=== PATIENT | female | born 1965 | race Caucasian/White ===

== ENCOUNTER → 2020-07-31 | Outpatient (CLI) | payer MEDICARE, OTHER ==
[2015-03-30 14:30] VITALS: BP 132/72
[~2020-07-31] MED LIST: CYCL10TA2 PO; DOCU-109 PO; DOXE100C PO; DOXE10CA PO; DULO60CA6 PO; HYDR10SY16 PO; HYDR50TA PO; LEVO500T59 PO; METH4TAB2 PO; Oxycodone Hcl/Acetaminophen PO; ZIPR60CA2 PO; ZIPR80CA3 PO
--- NOTE | 2020-08-09 08:50 | KCIC ---
Bilateral digital screening mammograms with 3-D tomosynthesis: Reason for examination: Routine screening. Comparison is made to previous studies dated back to 03/06/2017. Bilateral mammograms in CC and oblique projections were obtained with 2-D imaging and 3-D tomosynthes is imaging on a Siemens Inspiration unit and reviewed on the workstation. Interpretation was made stephan hernandez the benefit of CAD. The skin and nipples show no abnormalities. No abnormal axillary lymph nodes are seen. The breast par enchyma is extremely dense. (Breast density: Category D.) There continues to be a small circumscribed nodule at 3:00 position of the right breast which is stable. There are no new dominant masses, suspi cious calcifications or architectural distortion. Scattered punctate calcifications are seen. Impression: No evidence of malignancy. Recommend routine screening. Your patient's mammogram demonstrates that she has dense breast tissue (breast density category C or D), which could hide abnormalities, and if she has other risk factors for breast cancer that have bee n identified, she might benefit from supplemental screening tests that may be suggested by you as her ordering physician. Dense breast tissue, in and of itself, is a relatively common condition. Therefo re, this information is not provided to cause undue concern, but rather to raise your awareness and t o promote discussion with your patient regarding the presence of other risk factors, in addition to d ense breast tissue. Your patient's mammography results will be sent to her. BI-RAD Category 2: Benign. "Our facility is accredited by the [employer] Mammography Program." This patient's information has been entered into a reminder system for the patient to be notified wit h the results of her examination and a target date for the next mammogram. Electronically signed by: Becki Guardado MD (08/09/2020 8:47 AM) [id number]
== END ==
LOC: KCIC MAMMO 08:20
PROVIDERS: ATTEND Family Medicine
DX: Z12.31 Encounter for screening mammogram for malignant neoplasm of breast (principal); N64.89 Other specified disorders of breast
CPT/HCPCS: 77063; 77067

== ENCOUNTER → 2020-08-03 | Outpatient (CLI) | payer MEDICARE, OTHER ==
[2015-03-30 14:30] VITALS: BP 132/72
--- NOTE | 2020-08-03 14:39 | KCIC ---
EXAM: XR HAND_RIGHT 3 VIEWS, XR RT WRIST 3VIEWS 08/03/2020 12:00 AM CLINICAL INDICATION: Right wrist and hand pain post fall 4 days ago COMPARISON: None TECHNIQUE: 3 views of the right wrist and 3 views of the right hand FINDINGS: Right wrist: A splint is in place. There is no acute fracture. Alignment is normal. Joint spaces are maintained. Mild soft tissue swelling. Right hand: A splint is in place. No acute fracture. Alignment is normal. Joint spaces are maintained . No focal soft tissue abnormality. IMPRESSION: No acute osseous abnormality. Mild soft tissue swelling of the wrist. Electronically signed by: Usha Sarmiento MD (08/03/2020 2:36 PM) [id number]
== END ==
LOC: KCIC 14:05
PROVIDERS: ATTEND Family Medicine
DX: M79.641 Pain in right hand (principal); M25.531 Pain in right wrist; M79.89 Other specified soft tissue disorders
CPT/HCPCS: 73110; 73130

== ENCOUNTER 2021-01-26 11:34 | Inpatient (IN) | payer MEDICARE, OTHER ==
[~2021-01-26] VITALS: Ht 162.6 cm; Wt 61.5 kg
[2021-01-26 12:29] LABS: BASO # 0.1 x10^3/uL (0.0-0.2); BASO % 1 % (0-3); EOS % 0 % (0-3); HEMATOCRIT 41.3 % (36.0-47.0); HEMOGLOBIN 13.9 g/dL (12.0-15.5); LYMPH # 0.6 x10^3/uL (1.0-4.8); LYMPH % 3 % (24-48); MEAN CORPUSCULAR HEMOGLOBIN 30 pg (25-35); MEAN CORPUSCULAR HGB CONC 34 g/dL (31-37); MEAN CORPUSCULAR VOLUME 89 fL (79-100); MONO # 0.9 x10^3/uL (0.0-1.1); MONO % 5 % (0-9); NEUT # 16.7 x10^3/uL (1.8-7.7); NEUT % 91 % (31-73); PLATELET COUNT 162 x10^3/uL (140-400); RED BLOOD COUNT 4.67 x10^6/uL (3.50-5.40); RED CELL DISTRIBUTION WIDTH 14.7 % (11.5-14.5); WHITE BLOOD COUNT 18.3 x10^3/uL (4.0-11.0)
[2021-01-26 12:39] LABS: CREATININE 1.5 mg/dL (0.6-1.0); GFR 35.9; POTASSIUM 3.9 mmol/L (3.5-5.1)
--- NOTE | 2021-01-26 12:44 | RAD ---
AP chest x-ray HISTORY: Shortness of breath. FINDINGS: ACDF hardware cervical spine. Heart size normal. Mediastinal silhouette is grossly normal g iven leftward rotation of the patient on image which somewhat limits assessment. No pneumothorax. No pleural effusions. Left lung is clear. Pulmonary interstitial and alveolar infiltrates at the right l deborah base. Old posterior ninth left rib deformity.. IMPRESSION: Right perihilar upper lobe, and right middle and lower lobe pulmonary interstitial and al veolar infiltrates may represent asymmetric pulmonary edema versus pneumonia including atypical infec tions such as viral pneumonia. Electronically signed by: Arturo Escobar MD (01/26/2021 12:42 PM) [id number]
--- NOTE | 2021-01-26 12:44 | ED.ADGEN ---
Past Medical History Past Medical History: Bipolar Past Surgical History: Appendectomy, Cholecystectomy, Hysterectomy, Other Additional Past Surgical Histo: KIDNEY, NECK Smoking Status: Current Every Day Smoker Alcohol Use: None Drug Use: None Social History Narrative: "takes a lot of pills for psych issues" per sig. other General Adult EDM: Chief Complaint: ABDOMINAL PAIN HPI: HPI: Patient is a 55-year-old female past medical history of depression and anxiety who presents to the emergency room complaining of possible abdominal pain and vomiting. Patient is a very poor historian. She states she had belly pain yesterday and maybe has a cough. Her significant other states that she has been having belly pain and diarrhea. Patient is lethargic on exam. Significant other states he believes she took her normal value before work today. Patient states that she currently does not have any belly pain. She has not had a Covid vaccines. Review of Systems: Review of Systems: Complete ROS is negative unless otherwise documented in HPI Current Medications: Current Medications Medications (Trade) Dose Ordered Sig/Jesus Manuel Start Time Stop Time Status Last Admin Dose Admin Acetaminophen (Tylenol) 650 mg 1X ONCE 01/26/21 15:45 01/26/21 15:46 DC 01/26/21 16:13 650 MG Ceftriaxone Sodium (Rocephin) 1 gm 1X ONCE 01/26/21 15:45 01/26/21 15:46 DC 01/26/21 16:12 1 GM Info (CONTRAST GIVEN -- Rx MONITORING) 1 each PRN DAILY PRN 01/26/21 13:00 01/28/21 12:59 Iohexol (Omnipaque 240 Mg/ml) 30 ml 1X ONCE 01/26/21 13:00 01/26/21 13:01 DC 01/26/21 13:45 30 ML Sodium Chloride 1,000 ml @ 1,000 mls/hr 1X ONCE 01/26/21 15:45 01/26/21 16:44 DC 01/26/21 16:11 1,000 MLS/HR Allergies: Allergies: Allergies Coded Allergies Type Severity Reaction Last Updated Verified Sulfa (Sulfonamide Antibiotics) Allergy Intermediate 03/29/15 Yes penicillin Allergy Intermediate 03/29/15 Yes Physical Exam: PE: General: Awake, lethargic, mild diaphoresis HEENT: Atraumatic, EOMI, PERRL, airway patent, moist oral mucosa Neck: Supple, trachea midline Respiratory: CTA bilaterally, normal effort, no wheezing/crackles CV: Tachycardic, no murmur, cap refill <2 GI: Soft, nondistended, nontender, no masses MSK: No obvious deformities Skin: Warm, dry, intact Neuro: A&O x2, speech NL, sensory and motor grossly intact, no focal deficits Psych: Normal affect, normal mood, not suicidal or homicidal Current Patient Data: Labs: Laboratory Tests Test 01/26/21 11:54 01/26/21 14:35 01/26/21 14:40 White Blood Count 18.3 x10^3/uL (4.0-11.0) H Red Blood Count 4.67 x10^6/uL (3.50-5.40) Hemoglobin 13.9 g/dL (12.0-15.5) Hematocrit 41.3 % (36.0-47.0) Mean Corpuscular Volume 89 fL (79-100) Mean Corpuscular Hemoglobin 30 pg (25-35) Mean Corpuscular Hemoglobin Concent 34 g/dL (31-37) Red Cell Distribution Width 14.7 % (11.5-14.5) H Platelet Count 162 x10^3/uL (140-400) Neutrophils (%) (Auto) 91 % (31-73) H Lymphocytes (%) (Auto) 3 % (24-48) L Monocytes (%) (Auto) 5 % (0-9) Eosinophils (%) (Auto) 0 % (0-3) Basophils (%) (Auto) 1 % (0-3) Neutrophils # (Auto) 16.7 x10^3/uL (1.8-7.7) H Lymphocytes # (Auto) 0.6 x10^3/uL (1.0-4.8) L Monocytes # (Auto) 0.9 x10^3/uL (0.0-1.1) Eosinophils # (Auto) 0.0 x10^3/uL (0.0-0.7) Basophils # (Auto) 0.1 x10^3/uL (0.0-0.2) Segmented Neutrophils % 88 % (35-66) H Band Neutrophils % 2 % (0-9) Lymphocytes % 5 % (24-48) L Monocytes % 5 % (0-10) Platelet Estimate Adequate (ADEQUATE) Sodium Level 139 mmol/L (136-145) Potassium Level 3.9 mmol/L (3.5-5.1) Chloride Level 101 mmol/L (98-107) Carbon Dioxide Level 28 mmol/L (21-32) Anion Gap 10 (6-14) Blood Urea Nitrogen 12 mg/dL (7-20) Creatinine 1.5 mg/dL (0.6-1.0) H Estimated GFR (Cockcroft-Gault) 35.9 BUN/Creatinine Ratio 8 (6-20) Glucose Level 96 mg/dL (70-99) Calcium Level 9.0 mg/dL (8.5-10.1) Total Bilirubin 1.0 mg/dL (0.2-1.0) Aspartate Amino Transferase (AST) 56 U/L (15-37) H Alanine Aminotransferase (ALT) 37 U/L (14-59) Alkaline Phosphatase 107 U/L (46-116) Troponin I Quantitative < 0.017 ng/mL (0.000-0.055) FA-Wut-Z-Type Natriuretic Peptide 688 pg/mL (0-124) H Total Protein 8.1 g/dL (6.4-8.2) Albumin 3.8 g/dL (3.4-5.0) Albumin/Globulin Ratio 0.9 (1.0-1.7) L Lipase 16 U/L (73-393) L D-Dimer (Jayde) 1.44 ug/mlFEU (0.00-0.50) H Urine Collection Type Unknown Urine Color Yellow Urine Clarity Cloudy Urine pH 6.0 (<5.0-8.0) Urine Specific [place] 1.020 (1.000-1.030) Urine Protein Negative mg/dL (NEG-TRACE) Urine Glucose (UA) Negative mg/dL (NEG) Urine Ketones (Stick) 40 mg/dL (NEG) Urine Blood Moderate (NEG) Urine Nitrite Positive (NEG) Urine Bilirubin Negative (NEG) Urine Urobilinogen Dipstick 1.0 mg/dL (0.2 mg/dL) Urine Leukocyte Esterase Moderate (NEG) Urine RBC Occ /HPF (0-2) Urine WBC 20-40 /HPF (0-4) Urine Squamous Epithelial Cells Few /LPF Urine Bacteria Many /HPF (0-FEW) Urine Mucus Mod /LPF SARS-CoV-2 Antigen (Rapid) Negative (NEGATIVE) Laboratory Tests 01/26/21 11:54 Laboratory Tests 01/26/21 11:54 Vital Signs: Vital Signs Date Time Temp Pulse Resp B/P (MAP) Pulse Ox O2 Delivery O2 Flow Rate FiO2 01/26/21 15:42 119 17 110/54 (72) 95 Nasal Cannula 2.0 01/26/21 11:35 101.9 101.9 EKG: EKG: [] Heart Score: C/O Chest Pain: N/A Risk Factors: Risk Factors: DM, Current or recent (<one month) smoker, HTN, HLP, family history of CAD, obesity. Risk Scores: Score 0 - 3: 2.5% MACE over next 6 weeks - Discharge Home Score 4 - 6: 20.3% MACE over next 6 weeks - Admit for Clinical Observation Score 7 - 10: 72.7% MACE over next 6 weeks - Early Invasive Strategies Radiology/Procedures: Radiology/Procedures: [] Course & Med Decision Making: Course & Med Decision Making Pertinent Labs and Imaging studies reviewed. (See chart for details) Patient is a 55-year-old female who presents to the emergency room complaining of possible abdominal pain. Given patient's symptoms we will do an abdominal evaluation. Patient is a very poor historian at this time it is unclear exactly the cause of patient's presentation. Family member feels that she needs to be kept overnight but is unclear as to why they feel that way. Patient would like to go home as soon as possible. Patient became increasingly confused and hypoxic. She was placed on oxygen. Chest x-ray shows pneumonia which could be related to Covid. CT abdomen pelvis is negative. Patient does have a UTI. She was given antibiotics here in the emergency room. As patient received contrast for her CT abdomen she will need a VQ scan for elevated D-dimer. Patient will be admitted for further care and evaluation. Dragon Disclaimer: Sandro Disclaimer: This electronic medical record was generated, in whole or in part, using a voice recognition dictation system. Departure Departure Impression: Primary Impression: Person under investigation for COVID-19 Additional Impressions: Hypoxia Delirium Pyelonephritis Condition: GUARDED Referrals: BENITO GARCIA MD (PCP) Problem Qualifiers LENI HUERTA MD Jan 26, 2021 12:44
[2021-01-26 12:45] LABS: ALBUMIN 3.8 g/dL (3.4-5.0); ALBUMIN/GLOBULIN RATIO 0.9 (1.0-1.7); TOTAL PROTEIN 8.1 g/dL (6.4-8.2)
[2021-01-26] MEDS ORDERED: IOHEXOL 240 MG/ML 50ML VIAL. PO ONE (13:00)
[2021-01-26] MEDS ORDERED: CONTRAST GIVEN. MC PRN (13:00)
[2021-01-26 13:22] LABS: % BANDS 2 % (0-9); % LYMPHS 5 % (24-48); % MONOS 5 % (0-10); % SEGS 88 % (35-66); PLT ESTIMATE ADEQUATE (ADEQUATE)
--- NOTE | 2021-01-26 14:06 | RAD ---
CT abdomen and pelvis with oral contrast only. PQRS statement: CT scans at this facility use dose reduction including either automated exposure cont rol, iterative reconstructions, and /or weight based radiation dosing via mA and kV modification when appropriate to reduce radiation dose to as low as reasonably achievable. HISTORY: Abdominal pain, vomiting, confusion. Abdomen findings: Mild discoid atelectasis at the lingula and right middle lobe. Mild reflux of contr ast at the lower esophagus. Lumbar disc disease. Mild fatty atrophy of the pancreas. The left kidney is mildly atrophic. There is mild bilateral renal pelviectasis. No urinary calculi evident. Adrenals, spleen, liver and gallbladder are unremarkable. No obstruction or inflammation GI tract. Appendix is not visualized could be surgically absent or obscured by surrounding bowel loops. Aorta and iliac ar dione calcified plaque. No abdominal fluid. Pelvis findings: Uterus, ovaries, bladder, rectum and bones are unremarkable. No pelvic fluid. Osteit is pubis with bony sclerosis and bone spurring. IMPRESSION: 1. No acute process. No obstruction or inflammation of the GI tract. 2. Other findings as described above. Electronically signed by: Arturo Escobar MD (01/26/2021 2:04 PM) [id number]
[2021-01-26 14:53] LABS: BILIRUBIN,URINE NEGATIVE (NEG); CLARITY,URINE CLOUDY; COLOR,URINE YELLOW; NITRITE,URINE POSITIVE (NEG); PROTEIN,URINE NEGATIVE (NEG-TRACE)
[2021-01-26 15:02] LABS: BACTERIA,URINE MANY /HPF (0-FEW); RBC,URINE OCC /HPF (0-2); WBC,URINE 20-40 /HPF (0-4)
[2021-01-26] MEDS ORDERED: cefTRIAXone IV Push 1 GM VIAL. IVP ONE (15:45)
[2021-01-26] MEDS ORDERED: ACETAMINOPHEN 325 MG TABLET. PO ONE (15:45)
[2021-01-26] MEDS ORDERED: IV NORMAL SALINE 1000ML BAG 1,000 ML IV ONE ×2 (15:45→18:45)
[2021-01-26 17:30] VITALS: BP 122/72
--- NOTE | 2021-01-26 17:30 | NUR ---
PT ARRIVED TO ROOM 246 VIA GURNEY FROM ED. PT WAS TRANSFERRED TO BED. PT NOT FOLLOWING COMMANDS, INCONTINENT OF FECES, AND LT SIDE FACIAL DROOP. CODE STROKE CALLED.
--- NOTE | 2021-01-26 18:07 | RAD ---
Exam: CT head INDICATION: Stroke TECHNIQUE: Sequential axial images through the head were obtained without the administration of IV co ntrast. Exposure: One or more of the following in the visualized dose reduction techniques were utilized for this examination: 1. Automated exposure control 2. Adjustment of the MA and/or KV according to patient size 3. Use of iterative of reconstructive technique Comparisons: None FINDINGS: No focal parenchymal lesion or hemorrhage is identified. There is no midline shift or sulcal effaceme nt. No acute vascular territory infarction is identified. Humphries-white distinction is preserved. The ventricular system is within normal limits without compression hydrocephalus. The basal cisterns are well maintained. The visualized portions of the paranasal sinuses and mastoid air cells are well-pneumatized. No acute fractures. IMPRESSION: No acute intracranial abnormality. FOR INTERNAL CODING PURPOSES Critical result: Findings discussed with ER at 01/26/2021 6:04 PM. RESULT CODE: (C) Electronically signed by: Mary Grace Zapata MD (01/26/2021 6:05 PM) MARIA TERESA
--- NOTE | 2021-01-26 18:15 | NUR ---
PER DR GALVEZ - TOAN CODE STROKE. HE BELIEVES PT'S SX ARE DUE TO SEPSIS. Addendum: 01/26/21 at 1958 by BEN GOMES RN RN DR GALVEZ ALSO NOTIFIED REGARDING PT'S AXILLARY TEMP OF 103.2.
[2021-01-26] MEDS: IV NORMAL SALINE 1000ML BAG 1,000 ML IV SCH (18:45)
[2021-01-26] MEDS ORDERED: hydrOXYzine 25 MG TABLET PO PRN (18:45)
--- NOTE | 2021-01-26 18:51 | RAD ---
Ventilation perfusion exam History:Reason: sob, elevated ddimer Comparison: Chest x-ray same day Findings: Perfusion images only. Perfusion images were acquired after the patient was injected with 5 .5 mCi of technetium 99m MAA. TECHNIQUE: There is severe heterogeneity of radiotracer on perfusion images. Large segmental perfusion defect is identified, in the right upper lobe and right middle lobe.. Impression: High probability for pulmonary embolic disease. Electronically signed by: Mary Grace Zapata MD (01/26/2021 6:48 PM) [facility]
[2021-01-26 19:00] VITALS: BP 104/53
[2021-01-26] MEDS ORDERED: AZITHROMYCIN 500 MG in IV NORMAL SALINE 250ML 250 ML IV ONE (19:00)
--- NOTE | 2021-01-26 20:17 | PDOC1 ---
History and Physical Date of Admission Date of Admission DATE: 01/26/21 TIME: 20:11 Source Source: Chart review, Patient History of Present Illness History of Present Illness Ms Hannon is a 55-year-old female admit for hypoxia and high fever, UTI noted, abx given, CT chest showed poss unilateraly viral pneumonia, not clearly COVid on xray. she has been confused today and was slurred speech on the CV unit. she had abd pain earlier, this is improve,d - recent diarrnea. pain 4/10 now, 7/10 earlier She has not had a Covid vaccines. Past Medical History Cardiovascular: No pertinent hx Pulmonary: Other Psych: Anxiety, Depression Musculoskeletal: low back pain Family History Family History: Alcohol Abuse Social History Smoke: No ALCOHOL: rare Drugs: None Current Problem List Problem List Problems Medical Problems: (1) Delirium Status: Acute (2) Hypoxia Status: Acute (3) Person under investigation for COVID-19 Status: Acute (4) Pyelonephritis Status: Acute Current Medications Current Medications Current Medications Iohexol (Omnipaque 240 Mg/ml) 30 ml 1X ONCE PO Last administered on 01/26/21at 13:45; Start 01/26/21 at 13:00; Stop 01/26/21 at 13:01; Status DC Info (CONTRAST GIVEN -- Rx MONITORING) 1 each PRN DAILY PRN MC SEE COMMENTS; Start 01/26/21 at 13:00; Stop 01/28/21 at 12:59 Sodium Chloride 1,000 ml @ 1,000 mls/hr 1X ONCE IV Last administered on 01/26/21at 16:11; Start 01/26/21 at 15:45; Stop 01/26/21 at 16:44; Status DC Ceftriaxone Sodium (Rocephin) 1 gm 1X ONCE IVP Last administered on 01/26/21at 16:12; Start 01/26/21 at 15:45; Stop 01/26/21 at 15:46; Status DC Acetaminophen (Tylenol) 650 mg 1X ONCE PO Last administered on 01/26/21at 16:13; Start 01/26/21 at 15:45; Stop 01/26/21 at 15:46; Status DC Sodium Chloride 1,000 ml @ 125 mls/hr Q8H IV ; Start 01/26/21 at 17:00; Stop 01/27/21 at 16:59 Acetaminophen (Tylenol) 650 mg PRN Q6HRS PRN PO MILD PAIN / TEMP > 100.3'F; Start 01/26/21 at 18:45 Azithromycin 500 mg/Sodium Chloride 250 ml @ 250 mls/hr 1X ONCE IV ; Start 01/26/21 at 19:00; Stop 01/26/21 at 19:59; Status DC Ceftriaxone Sodium (Rocephin) 1 gm Q24H IVP ; Start 01/27/21 at 16:00 Guaifenesin (Robitussin Dm) 10 ml PRN Q6HRS PRN PO COUGH; Start 01/26/21 at 18:45 Sodium Chloride 1,000 ml @ 1,000 mls/hr 1X ONCE IV ; Start 01/26/21 at 18:45; Stop 01/26/21 at 19:44; Status DC Doxepin HCl (SINEquan) 100 mg QHS PO ; Start 01/26/21 at 21:00 Duloxetine HCl (Cymbalta) 90 mg DAILY PO ; Start 01/27/21 at 09:00 Hydroxyzine HCl (Atarax) 50 mg PRN QID PRN PO ANXIETY; Start 01/26/21 at 18:45 Ziprasidone (Geodon) 60 mg BID PO ; Start 01/26/21 at 21:00 Ziprasidone (Geodon) 40 mg BID PO ; Start 01/26/21 at 21:00 Active Scripts Active Reported Hydroxyzine Hcl 50 Mg Tablet 50 Mg PO PRN QID PRN Ziprasidone Hcl 80 Mg Capsule 100 Mg PO BID Doxepin Hcl 100 Mg Capsule 100 Mg PO QHS Cymbalta (Duloxetine Hcl) 60 Mg Capsule.dr 90 Mg PO DAILY Allergies Allergies: Coded Allergies: Sulfa (Sulfonamide Antibiotics) (Verified Allergy, Intermediate, 03/29/15) penicillin (Verified Allergy, Intermediate, 03/29/15) Physical Exam General: moderate distress, Other (confused, lethargic, does remember me from 2015) Abdomen: Normal bowel sounds, Soft Extremities: No cyanosis, No edema, Normal pulses Skin: Other (old skin injuries look like cutting, she says her dogs, ) Neuro: Sensation intact, Cranial nerves 3-12 NL, Other (slurred speech) Psych/Mental Status: Other (pos affect, but confused, she says she feels confused, ) Vitals Vitals Vital Signs Date Time Temp Pulse Resp B/P (MAP) Pulse Ox O2 Delivery O2 Flow Rate FiO2 01/26/21 17:30 Nasal Cannula 2.0 01/26/21 17:30 103.2 120 24 122/72 (89) 95 103.2 Labs Labs Laboratory Tests Test 01/26/21 11:54 01/26/21 14:35 01/26/21 14:40 01/26/21 17:49 White Blood Count 18.3 x10^3/uL (4.0-11.0) Red Blood Count 4.67 x10^6/uL (3.50-5.40) Hemoglobin 13.9 g/dL (12.0-15.5) Hematocrit 41.3 % (36.0-47.0) Mean Corpuscular Volume 89 fL (79-100) Mean Corpuscular Hemoglobin 30 pg (25-35) Mean Corpuscular Hemoglobin Concent 34 g/dL (31-37) Red Cell Distribution Width 14.7 % (11.5-14.5) Platelet Count 162 x10^3/uL (140-400) Neutrophils (%) (Auto) 91 % (31-73) Lymphocytes (%) (Auto) 3 % (24-48) Monocytes (%) (Auto) 5 % (0-9) Eosinophils (%) (Auto) 0 % (0-3) Basophils (%) (Auto) 1 % (0-3) Neutrophils # (Auto) 16.7 x10^3/uL (1.8-7.7) Lymphocytes # (Auto) 0.6 x10^3/uL (1.0-4.8) Monocytes # (Auto) 0.9 x10^3/uL (0.0-1.1) Eosinophils # (Auto) 0.0 x10^3/uL (0.0-0.7) Basophils # (Auto) 0.1 x10^3/uL (0.0-0.2) Segmented Neutrophils % 88 % (35-66) Band Neutrophils % 2 % (0-9) Lymphocytes % 5 % (24-48) Monocytes % 5 % (0-10) Platelet Estimate Adequate (ADEQUATE) Sodium Level 139 mmol/L (136-145) Potassium Level 3.9 mmol/L (3.5-5.1) Chloride Level 101 mmol/L (98-107) Carbon Dioxide Level 28 mmol/L (21-32) Anion Gap 10 (6-14) Blood Urea Nitrogen 12 mg/dL (7-20) Creatinine 1.5 mg/dL (0.6-1.0) Estimated GFR (Cockcroft-Gault) 35.9 BUN/Creatinine Ratio 8 (6-20) Glucose Level 96 mg/dL (70-99) Calcium Level 9.0 mg/dL (8.5-10.1) Total Bilirubin 1.0 mg/dL (0.2-1.0) Aspartate Amino Transf (AST/SGOT) 56 U/L (15-37) Alanine Aminotransferase (ALT/SGPT) 37 U/L (14-59) Alkaline Phosphatase 107 U/L (46-116) Troponin I Quantitative < 0.017 ng/mL (0.000-0.055) BG-Ubu-V-Type Natriuretic Peptide 688 pg/mL (0-124) Total Protein 8.1 g/dL (6.4-8.2) Albumin 3.8 g/dL (3.4-5.0) Albumin/Globulin Ratio 0.9 (1.0-1.7) Lipase 16 U/L (73-393) D-Dimer (Jayde) 1.44 ug/mlFEU (0.00-0.50) Urine Collection Type Unknown Urine Color Yellow Urine Clarity Cloudy Urine pH 6.0 (<5.0-8.0) Urine Specific [place] 1.020 (1.000-1.030) Urine Protein Negative mg/dL (NEG-TRACE) Urine Glucose (UA) Negative mg/dL (NEG) Urine Ketones (Stick) 40 mg/dL (NEG) Urine Blood Moderate (NEG) Urine Nitrite Positive (NEG) Urine Bilirubin Negative (NEG) Urine Urobilinogen Dipstick 1.0 mg/dL (0.2 mg/dL) Urine Leukocyte Esterase Moderate (NEG) Urine RBC Occ /HPF (0-2) Urine WBC 20-40 /HPF (0-4) Urine Squamous Epithelial Cells Few /LPF Urine Bacteria Many /HPF (0-FEW) Urine Mucus Mod /LPF SARS-CoV-2 Antigen (Rapid) Negative (NEGATIVE) Glucose (Fingerstick) 101 mg/dL (70-99) Laboratory Tests Test 01/26/21 11:54 01/26/21 14:35 01/26/21 14:40 01/26/21 17:49 White Blood Count 18.3 x10^3/uL (4.0-11.0) Red Blood Count 4.67 x10^6/uL (3.50-5.40) Hemoglobin 13.9 g/dL (12.0-15.5) Hematocrit 41.3 % (36.0-47.0) Mean Corpuscular Volume 89 fL (79-100) Mean Corpuscular Hemoglobin 30 pg (25-35) Mean Corpuscular Hemoglobin Concent 34 g/dL (31-37) Red Cell Distribution Width 14.7 % (11.5-14.5) Platelet Count 162 x10^3/uL (140-400) Neutrophils (%) (Auto) 91 % (31-73) Lymphocytes (%) (Auto) 3 % (24-48) Monocytes (%) (Auto) 5 % (0-9) Eosinophils (%) (Auto) 0 % (0-3) Basophils (%) (Auto) 1 % (0-3) Neutrophils # (Auto) 16.7 x10^3/uL (1.8-7.7) Lymphocytes # (Auto) 0.6 x10^3/uL (1.0-4.8) Monocytes # (Auto) 0.9 x10^3/uL (0.0-1.1) Eosinophils # (Auto) 0.0 x10^3/uL (0.0-0.7) Basophils # (Auto) 0.1 x10^3/uL (0.0-0.2) Segmented Neutrophils % 88 % (35-66) Band Neutrophils % 2 % (0-9) Lymphocytes % 5 % (24-48) Monocytes % 5 % (0-10) Platelet Estimate Adequate (ADEQUATE) Sodium Level 139 mmol/L (136-145) Potassium Level 3.9 mmol/L (3.5-5.1) Chloride Level 101 mmol/L (98-107) Carbon Dioxide Level 28 mmol/L (21-32) Anion Gap 10 (6-14) Blood Urea Nitrogen 12 mg/dL (7-20) Creatinine 1.5 mg/dL (0.6-1.0) Estimated GFR (Cockcroft-Gault) 35.9 BUN/Creatinine Ratio 8 (6-20) Glucose Level 96 mg/dL (70-99) Calcium Level 9.0 mg/dL (8.5-10.1) Total Bilirubin 1.0 mg/dL (0.2-1.0) Aspartate Amino Transf (AST/SGOT) 56 U/L (15-37) Alanine Aminotransferase (ALT/SGPT) 37 U/L (14-59) Alkaline Phosphatase 107 U/L (46-116) Troponin I Quantitative < 0.017 ng/mL (0.000-0.055) AW-Csr-L-Type Natriuretic Peptide 688 pg/mL (0-124) Total Protein 8.1 g/dL (6.4-8.2) Albumin 3.8 g/dL (3.4-5.0) Albumin/Globulin Ratio 0.9 (1.0-1.7) Lipase 16 U/L (73-393) D-Dimer (Jayde) 1.44 ug/mlFEU (0.00-0.50) Urine Collection Type Unknown Urine Color Yellow Urine Clarity Cloudy Urine pH 6.0 (<5.0-8.0) Urine Specific [place] 1.020 (1.000-1.030) Urine Protein Negative mg/dL (NEG-TRACE) Urine Glucose (UA) Negative mg/dL (NEG) Urine Ketones (Stick) 40 mg/dL (NEG) Urine Blood Moderate (NEG) Urine Nitrite Positive (NEG) Urine Bilirubin Negative (NEG) Urine Urobilinogen Dipstick 1.0 mg/dL (0.2 mg/dL) Urine Leukocyte Esterase Moderate (NEG) Urine RBC Occ /HPF (0-2) Urine WBC 20-40 /HPF (0-4) Urine Squamous Epithelial Cells Few /LPF Urine Bacteria Many /HPF (0-FEW) Urine Mucus Mod /LPF SARS-CoV-2 Antigen (Rapid) Negative (NEGATIVE) Glucose (Fingerstick) 101 mg/dL (70-99) VTE Prophylaxis Ordered VTE Prophylaxis Devices: No VTE Pharmacological Prophylaxi: Yes Assessment/Plan Assessment/Plan sepsis acute hypoxic respiratory failure R/o FOR COVID -19, PUI, isolate acute metabolic encephalopathy, delirium from sepsis nausea, could also be COVID Bipolar disorder, on 80 BID Cory, Justifications for Admission Other Justification ALLISON GALVEZ MD Jan 26, 2021 20:16
[2021-01-26 20:24] LABS: BASE EXCESS ABG 0 mmol/L (-3-3); CORRECTED PCO2 ABG 39 mmHg; CORRECTED PH ABG 7.41; CORRECTED PO2 ABG 85 mmHg; HCO3 ABG 24 mmol/L (21-28); SAT O2 ABG 94 % (92-99)
[2021-01-26 20:25] LABS: PCO2 ABG 34 mmHg (35-46)
[2021-01-26 20:26] LABS: FIO2 ABG 28; PO2 ABG 69 mmHg (75-108)
[2021-01-26] MEDS ORDERED: ENOXAPARIN 40 MG/0.4 ML SYRINGE. SQ SCH (21:00)
[2021-01-26] MEDS ORDERED: DOXEPIN HCL 25 MG CAPSULE. PO SCH (21:00)
[2021-01-26] MEDS: ACETAMINOPHEN 325 MG TABLET. PO PRN (22:32)
[2021-01-26] MEDS: ZIPRASIDONE 60 MG CAPSULE. PO SCH (22:33)
[2021-01-26] MEDS: ZIPRASIDONE 20 MG CAPSULE PO SCH (22:33)
[2021-01-26 22:45] VITALS: BP 116/70
--- NOTE | 2021-01-26 23:00 | NUR ---
Pt's oxygen sat only 86-88% on 2L NC. Increased pt's oxygen to 4L NC. Pt now sating 93%. Encouraged pt to TC and DB without much success. Call light within reach. Will continue to monitor.
[2021-01-27] MEDS: IV NORMAL SALINE 1000ML BAG 1,000 ML IV SCH ×2 (01:00→09:15)
[2021-01-27 03:25] VITALS: BP 95/58
[2021-01-27] MEDS ORDERED: ATOR10TA60 PO (04:52)
[2021-01-27] MEDS ORDERED: PANT40TA77 PO (04:52)
[2021-01-27] MEDS ORDERED: DIAZEPAM10 MG PO (04:52)
[2021-01-27] MEDS ORDERED: ZIPR40CA2 PO (04:52)
[2021-01-27] MEDS ORDERED: LEVO75TA5 PO (04:52)
[2021-01-27] MEDS ORDERED: ARIP2TAB3 PO (04:52)
[2021-01-27] MEDS ORDERED: GABA300C18 PO (04:52)
[2021-01-27] MEDS ORDERED: FLUT1DIS5 IH (04:57)
[2021-01-27] MEDS ORDERED: ALBU2.5V8 IH (04:57)
[2021-01-27 07:02] LABS: BASO % 0 % (0-3); EOS % 0 % (0-3); HEMATOCRIT 38.1 % (36.0-47.0); HEMOGLOBIN 12.9 g/dL (12.0-15.5); LYMPH # 0.8 x10^3/uL (1.0-4.8); LYMPH % 7 % (24-48); MEAN CORPUSCULAR HEMOGLOBIN 30 pg (25-35); MEAN CORPUSCULAR HGB CONC 34 g/dL (31-37); MEAN CORPUSCULAR VOLUME 88 fL (79-100); MONO # 0.5 x10^3/uL (0.0-1.1); MONO % 4 % (0-9); NEUT # 11.3 x10^3/uL (1.8-7.7); NEUT % 89 % (31-73); PLATELET COUNT 122 x10^3/uL (140-400); RED BLOOD COUNT 4.31 x10^6/uL (3.50-5.40); RED CELL DISTRIBUTION WIDTH 14.4 % (11.5-14.5); WHITE BLOOD COUNT 12.7 x10^3/uL (4.0-11.0)
[2021-01-27 07:10] VITALS: BP 124/64
[2021-01-27 07:46] LABS: ALBUMIN 2.8 g/dL (3.4-5.0); ALBUMIN/GLOBULIN RATIO 0.7 (1.0-1.7); CREATININE 1.3 mg/dL (0.6-1.0); GFR 42.4; POTASSIUM 3.8 mmol/L (3.5-5.1); TOTAL BILIRUBIN 1.1 mg/dL (0.2-1.0); TOTAL PROTEIN 6.7 g/dL (6.4-8.2)
--- NOTE | 2021-01-27 07:54 | NUR ---
PT USED CALL LIGHT TO ASK TO GO TO BATHROOM. THIS RN HELPED PT TO COMMODE. PT UNSTEADY ON HER FEET. PT A&O X 4 TODAY. PT HAD WHAT APPEARED TO BE A NORMAL CONVERSATION WITH HER BOYFRIEND ON THE PHONE. CALL LIGHT IN REACH. BED IN LOW POSITION WITH BED ALARM ON. PT DID TELL ME SHE HAS A DENTIST APPT TOMORROW THAT SHE WILL NEED TO CANCEL. Addendum: 01/27/21 at 1130 by BEN GOMES RN RN AT 1110, DR GANT CALLED BACK AND WAS UPDATED ON PT'S STATUS. PER DR GANT GIVE NS 500ML BOLUS AND ORDER UDS.
[2021-01-27] MEDS ORDERED: DULoxetine HCL 30 MG CAPSULE.DR PO SCH (09:00)
[2021-01-27] MEDS: ZIPRASIDONE 60 MG CAPSULE. PO SCH (09:16)
[2021-01-27] MEDS: ZIPRASIDONE 20 MG CAPSULE PO SCH ×2 (09:16→22:54)
[2021-01-27] MEDS: ACETAMINOPHEN 325 MG TABLET. PO PRN (09:16)
--- NOTE | 2021-01-27 10:20 | PDOC ---
PULMONARY PROGRESS NOTES DATE: 01/27/21 TIME: 10:19 Vitals Vital Signs Date Time Temp Pulse Resp B/P (MAP) Pulse Ox O2 Delivery O2 Flow Rate FiO2 01/27/21 08:00 Nasal Cannula 4.0 01/27/21 07:10 101.8 111 44 124/64 (84) 96 101.8 Labs Laboratory Tests Test 01/26/21 11:54 01/26/21 14:35 01/26/21 14:40 01/26/21 17:49 White Blood Count 18.3 x10^3/uL (4.0-11.0) Red Blood Count 4.67 x10^6/uL (3.50-5.40) Hemoglobin 13.9 g/dL (12.0-15.5) Hematocrit 41.3 % (36.0-47.0) Mean Corpuscular Volume 89 fL (79-100) Mean Corpuscular Hemoglobin 30 pg (25-35) Mean Corpuscular Hemoglobin Concent 34 g/dL (31-37) Red Cell Distribution Width 14.7 % (11.5-14.5) Platelet Count 162 x10^3/uL (140-400) Neutrophils (%) (Auto) 91 % (31-73) Lymphocytes (%) (Auto) 3 % (24-48) Monocytes (%) (Auto) 5 % (0-9) Eosinophils (%) (Auto) 0 % (0-3) Basophils (%) (Auto) 1 % (0-3) Neutrophils # (Auto) 16.7 x10^3/uL (1.8-7.7) Lymphocytes # (Auto) 0.6 x10^3/uL (1.0-4.8) Monocytes # (Auto) 0.9 x10^3/uL (0.0-1.1) Eosinophils # (Auto) 0.0 x10^3/uL (0.0-0.7) Basophils # (Auto) 0.1 x10^3/uL (0.0-0.2) Segmented Neutrophils % 88 % (35-66) Band Neutrophils % 2 % (0-9) Lymphocytes % 5 % (24-48) Monocytes % 5 % (0-10) Platelet Estimate Adequate (ADEQUATE) Sodium Level 139 mmol/L (136-145) Potassium Level 3.9 mmol/L (3.5-5.1) Chloride Level 101 mmol/L (98-107) Carbon Dioxide Level 28 mmol/L (21-32) Anion Gap 10 (6-14) Blood Urea Nitrogen 12 mg/dL (7-20) Creatinine 1.5 mg/dL (0.6-1.0) Estimated GFR (Cockcroft-Gault) 35.9 BUN/Creatinine Ratio 8 (6-20) Glucose Level 96 mg/dL (70-99) Calcium Level 9.0 mg/dL (8.5-10.1) Total Bilirubin 1.0 mg/dL (0.2-1.0) Aspartate Amino Transf (AST/SGOT) 56 U/L (15-37) Alanine Aminotransferase (ALT/SGPT) 37 U/L (14-59) Alkaline Phosphatase 107 U/L (46-116) Troponin I Quantitative < 0.017 ng/mL (0.000-0.055) UA-Zdn-[id number]-Type Natriuretic Peptide 688 pg/mL (0-124) Total Protein 8.1 g/dL (6.4-8.2) Albumin 3.8 g/dL (3.4-5.0) Albumin/Globulin Ratio 0.9 (1.0-1.7) Lipase 16 U/L (73-393) D-Dimer (Jayde) 1.44 ug/mlFEU (0.00-0.50) Urine Collection Type Unknown Urine Color Yellow Urine Clarity Cloudy Urine pH 6.0 (<5.0-8.0) Urine Specific [place] 1.020 (1.000-1.030) Urine Protein Negative mg/dL (NEG-TRACE) Urine Glucose (UA) Negative mg/dL (NEG) Urine Ketones (Stick) 40 mg/dL (NEG) Urine Blood Moderate (NEG) Urine Nitrite Positive (NEG) Urine Bilirubin Negative (NEG) Urine Urobilinogen Dipstick 1.0 mg/dL (0.2 mg/dL) Urine Leukocyte Esterase Moderate (NEG) Urine RBC Occ /HPF (0-2) Urine WBC 20-40 /HPF (0-4) Urine Squamous Epithelial Cells Few /LPF Urine Bacteria Many /HPF (0-FEW) Urine Mucus Mod /LPF SARS-CoV-2 RNA (RENE) Negative (Negative) SARS-CoV-2 Antigen (Rapid) Negative (NEGATIVE) Glucose (Fingerstick) 101 mg/dL (70-99) Test 01/26/21 20:07 01/26/21 20:20 01/27/21 06:15 O2 Saturation 94 % (92-99) Arterial Blood pH 7.45 (7.35-7.45) Arterial Blood pH (Temp corrected) 7.41 Arterial Blood pCO2 at Patient Temp 34 mmHg (35-46) Arterial Blood pCO2 (Temp correct) 39 mmHg Arterial Blood pO2 at Patient Temp 69 mmHg (75-108) Arterial Blood pO2 (Temp corrected) 85 mmHg Arterial Blood HCO3 24 mmol/L (21-28) Arterial Blood Base Excess 0 mmol/L (-3-3) FiO2 28 Lactic Acid Level 0.9 mmol/L (0.4-2.0) White Blood Count 12.7 x10^3/uL (4.0-11.0) Red Blood Count 4.31 x10^6/uL (3.50-5.40) Hemoglobin 12.9 g/dL (12.0-15.5) Hematocrit 38.1 % (36.0-47.0) Mean Corpuscular Volume 88 fL (79-100) Mean Corpuscular Hemoglobin 30 pg (25-35) Mean Corpuscular Hemoglobin Concent 34 g/dL (31-37) Red Cell Distribution Width 14.4 % (11.5-14.5) Platelet Count 122 x10^3/uL (140-400) Neutrophils (%) (Auto) 89 % (31-73) Lymphocytes (%) (Auto) 7 % (24-48) Monocytes (%) (Auto) 4 % (0-9) Eosinophils (%) (Auto) 0 % (0-3) Basophils (%) (Auto) 0 % (0-3) Neutrophils # (Auto) 11.3 x10^3/uL (1.8-7.7) Lymphocytes # (Auto) 0.8 x10^3/uL (1.0-4.8) Monocytes # (Auto) 0.5 x10^3/uL (0.0-1.1) Eosinophils # (Auto) 0.0 x10^3/uL (0.0-0.7) Basophils # (Auto) 0.0 x10^3/uL (0.0-0.2) Sodium Level 144 mmol/L (136-145) Potassium Level 3.8 mmol/L (3.5-5.1) Chloride Level 107 mmol/L (98-107) Carbon Dioxide Level 28 mmol/L (21-32) Anion Gap 9 (6-14) Blood Urea Nitrogen 14 mg/dL (7-20) Creatinine 1.3 mg/dL (0.6-1.0) Estimated GFR (Cockcroft-Gault) 42.4 BUN/Creatinine Ratio 11 (6-20) Glucose Level 92 mg/dL (70-99) Calcium Level 8.0 mg/dL (8.5-10.1) Total Bilirubin 1.1 mg/dL (0.2-1.0) Aspartate Amino Transf (AST/SGOT) 83 U/L (15-37) Alanine Aminotransferase (ALT/SGPT) 43 U/L (14-59) Alkaline Phosphatase 75 U/L (46-116) Total Protein 6.7 g/dL (6.4-8.2) Albumin 2.8 g/dL (3.4-5.0) Albumin/Globulin Ratio 0.7 (1.0-1.7) Laboratory Tests Test 01/26/21 11:54 01/26/21 14:35 01/26/21 14:40 01/26/21 17:49 White Blood Count 18.3 x10^3/uL (4.0-11.0) Red Blood Count 4.67 x10^6/uL (3.50-5.40) Hemoglobin 13.9 g/dL (12.0-15.5) Hematocrit 41.3 % (36.0-47.0) Mean Corpuscular Volume 89 fL (79-100) Mean Corpuscular Hemoglobin 30 pg (25-35) Mean Corpuscular Hemoglobin Concent 34 g/dL (31-37) Red Cell Distribution Width 14.7 % (11.5-14.5) Platelet Count 162 x10^3/uL (140-400) Neutrophils (%) (Auto) 91 % (31-73) Lymphocytes (%) (Auto) 3 % (24-48) Monocytes (%) (Auto) 5 % (0-9) Eosinophils (%) (Auto) 0 % (0-3) Basophils (%) (Auto) 1 % (0-3) Neutrophils # (Auto) 16.7 x10^3/uL (1.8-7.7) Lymphocytes # (Auto) 0.6 x10^3/uL (1.0-4.8) Monocytes # (Auto) 0.9 x10^3/uL (0.0-1.1) Eosinophils # (Auto) 0.0 x10^3/uL (0.0-0.7) Basophils # (Auto) 0.1 x10^3/uL (0.0-0.2) Segmented Neutrophils % 88 % (35-66) Band Neutrophils % 2 % (0-9) Lymphocytes % 5 % (24-48) Monocytes % 5 % (0-10) Platelet Estimate Adequate (ADEQUATE) Sodium Level 139 mmol/L (136-145) Potassium Level 3.9 mmol/L (3.5-5.1) Chloride Level 101 mmol/L (98-107) Carbon Dioxide Level 28 mmol/L (21-32) Anion Gap 10 (6-14) Blood Urea Nitrogen 12 mg/dL (7-20) Creatinine 1.5 mg/dL (0.6-1.0) Estimated GFR (Cockcroft-Gault) 35.9 BUN/Creatinine Ratio 8 (6-20) Glucose Level 96 mg/dL (70-99) Calcium Level 9.0 mg/dL (8.5-10.1) Total Bilirubin 1.0 mg/dL (0.2-1.0) Aspartate Amino Transf (AST/SGOT) 56 U/L (15-37) Alanine Aminotransferase (ALT/SGPT) 37 U/L (14-59) Alkaline Phosphatase 107 U/L (46-116) Troponin I Quantitative < 0.017 ng/mL (0.000-0.055) XK-Lxg-J-Type Natriuretic Peptide 688 pg/mL (0-124) Total Protein 8.1 g/dL (6.4-8.2) Albumin 3.8 g/dL (3.4-5.0) Albumin/Globulin Ratio 0.9 (1.0-1.7) Lipase 16 U/L (73-393) D-Dimer (Jayde) 1.44 ug/mlFEU (0.00-0.50) Urine Collection Type Unknown Urine Color Yellow Urine Clarity Cloudy Urine pH 6.0 (<5.0-8.0) Urine Specific [place] 1.020 (1.000-1.030) Urine Protein Negative mg/dL (NEG-TRACE) Urine Glucose (UA) Negative mg/dL (NEG) Urine Ketones (Stick) 40 mg/dL (NEG) Urine Blood Moderate (NEG) Urine Nitrite Positive (NEG) Urine Bilirubin Negative (NEG) Urine Urobilinogen Dipstick 1.0 mg/dL (0.2 mg/dL) Urine Leukocyte Esterase Moderate (NEG) Urine RBC Occ /HPF (0-2) Urine WBC 20-40 /HPF (0-4) Urine Squamous Epithelial Cells Few /LPF Urine Bacteria Many /HPF (0-FEW) Urine Mucus Mod /LPF SARS-CoV-2 RNA (RENE) Negative (Negative) SARS-CoV-2 Antigen (Rapid) Negative (NEGATIVE) Glucose (Fingerstick) 101 mg/dL (70-99) Test 01/26/21 20:07 01/26/21 20:20 01/27/21 06:15 O2 Saturation 94 % (92-99) Arterial Blood pH 7.45 (7.35-7.45) Arterial Blood pH (Temp corrected) 7.41 Arterial Blood pCO2 at Patient Temp 34 mmHg (35-46) Arterial Blood pCO2 (Temp correct) 39 mmHg Arterial Blood pO2 at Patient Temp 69 mmHg (75-108) Arterial Blood pO2 (Temp corrected) 85 mmHg Arterial Blood HCO3 24 mmol/L (21-28) Arterial Blood Base Excess 0 mmol/L (-3-3) FiO2 28 Lactic Acid Level 0.9 mmol/L (0.4-2.0) White Blood Count 12.7 x10^3/uL (4.0-11.0) Red Blood Count 4.31 x10^6/uL (3.50-5.40) Hemoglobin 12.9 g/dL (12.0-15.5) Hematocrit 38.1 % (36.0-47.0) Mean Corpuscular Volume 88 fL (79-100) Mean Corpuscular Hemoglobin 30 pg (25-35) Mean Corpuscular Hemoglobin Concent 34 g/dL (31-37) Red Cell Distribution Width 14.4 % (11.5-14.5) Platelet Count 122 x10^3/uL (140-400) Neutrophils (%) (Auto) 89 % (31-73) Lymphocytes (%) (Auto) 7 % (24-48) Monocytes (%) (Auto) 4 % (0-9) Eosinophils (%) (Auto) 0 % (0-3) Basophils (%) (Auto) 0 % (0-3) Neutrophils # (Auto) 11.3 x10^3/uL (1.8-7.7) Lymphocytes # (Auto) 0.8 x10^3/uL (1.0-4.8) Monocytes # (Auto) 0.5 x10^3/uL (0.0-1.1) Eosinophils # (Auto) 0.0 x10^3/uL (0.0-0.7) Basophils # (Auto) 0.0 x10^3/uL (0.0-0.2) Sodium Level 144 mmol/L (136-145) Potassium Level 3.8 mmol/L (3.5-5.1) Chloride Level 107 mmol/L (98-107) Carbon Dioxide Level 28 mmol/L (21-32) Anion Gap 9 (6-14) Blood Urea Nitrogen 14 mg/dL (7-20) Creatinine 1.3 mg/dL (0.6-1.0) Estimated GFR (Cockcroft-Gault) 42.4 BUN/Creatinine Ratio 11 (6-20) Glucose Level 92 mg/dL (70-99) Calcium Level 8.0 mg/dL (8.5-10.1) Total Bilirubin 1.1 mg/dL (0.2-1.0) Aspartate Amino Transf (AST/SGOT) 83 U/L (15-37) Alanine Aminotransferase (ALT/SGPT) 43 U/L (14-59) Alkaline Phosphatase 75 U/L (46-116) Total Protein 6.7 g/dL (6.4-8.2) Albumin 2.8 g/dL (3.4-5.0) Albumin/Globulin Ratio 0.7 (1.0-1.7) Medications Active Scripts Medications Dose Route/Sig Max Daily Dose Days Date Category Proair Hfa Inhaler (Albuterol Sulfate) 8.5 Gm Hfa.aer.ad 2 Puff IH PRN Q4HRS PRN 21 01/27/21 Reported Advair 500-50 Diskus (Fluticasone/Salmeterol) 1 Each Disk.w.dev 1 Puff IH BID 01/27/21 Reported Geodon (Ziprasidone Hcl) 40 Mg Capsule 80 Mg PO BID 01/27/21 Reported Levothyroxine Sodium 75 Mcg Tablet 1 Tab PO DAILY05 01/27/21 Reported Atorvastatin Calcium 10 Mg Tablet 1 Tab PO DAILY 01/27/21 Reported Diazepam 10 Mg Tablet 10 Mg PO BID 01/27/21 Reported Pantoprazole Sodium (Pantoprazole Sodium) 40 Mg Tablet.dr 40 Mg PO DAILYAC 01/27/21 Reported Abilify (Aripiprazole) 2 Mg Tablet 1 Tab PO DAILY 30 01/27/21 Reported Gabapentin (Gabapentin) 300 Mg Capsule 300 Mg PO TID 01/27/21 Reported Hydroxyzine Hcl 50 Mg Tablet 50 Mg PO PRN QID PRN 03/26/15 Reported Ziprasidone Hcl 80 Mg Capsule 100 Mg PO BID 03/26/15 Reported Doxepin Hcl 100 Mg Capsule 100 Mg PO QHS 03/26/15 Reported Cymbalta (Duloxetine Hcl) 60 Mg Capsule.dr 90 Mg PO DAILY 03/25/15 Reported Impression . Full consult dictated Treat for pneumonia Doubt PE We will obtain CT angiogram once BUN and creatinine have corrected with hydration Discussed with nurse MARTIN CALABRESE MD Jan 27, 2021 10:20
[2021-01-27 10:40] VITALS: BP 82/47
[2021-01-27 11:30] LABS: AMPHETAMINE/METHAMPHETAMINE NEG (NEG); BARBITURATES NEG (NEG); BENZODIAZEPINES POS (NEG); CANNABINOIDS POS (NEG); COCAINE NEG (NEG); METHADONE NEG (NEG); OPIATES NEG (NEG); PHENCYCLIDINE NEG (NEG)
[2021-01-27] MEDS ORDERED: HALOPERIDOL LACTATE 5 MG/ML VIAL. IVP PRN (11:30)
--- NOTE | 2021-01-27 12:14 | PDOC ---
GENERAL General: Patient examined chart reviewed today's hospital day 2 for this patient who brought herself into the emergency department yesterday for complaint of ab dominal pain and weakness. From the emergency department note it sounds like she was confused on her assessment there and a poor historian. She did not contribute much to the history of present illness given by the [facility] hospitalist. This morning she is more somnolent after her several mental health meds were administered. Nursing called concerned given her high fever, hypotension, tachycardia, and dyspnea. She was unable to participate in the VQ scan completely and so it was read as high suspicion for pulmonary embolism. Appreciate pulmonary input today she was started on weight-based pulmonary embolism doses of Lovenox but lower clinical suspicion by the assessment. She is allergic to penicillin and has been started on treatment for community- acquired pneumonia coverage with ceftriaxone and Zithromax and tolerated that. We will await cultures. Urine tox screen is pending. She is clinically stable at this point to maintain care on the telemetry unit. If she continues to be somnolent despite holding her heavy mental health meds we will administer dose of Narcan and reassess. Of note there is not a prior admission here to review for more information. Time spent today is 30 minutes with greater than 50% in counseling and coordination of care most of which in discussion with nursing and review of records. Problems: (1) Delirium (2) Hypoxia VITAL SIGNS Vital Signs/I&O: Vital Signs Date Time Temp Pulse Resp B/P (MAP) Pulse Ox O2 Delivery O2 Flow Rate FiO2 01/27/21 10:40 100.2 100 44 82/47 (59) 98 Nasal Cannula 4.0 100.2 I & O 01/26/21 01/26/21 01/27/21 15:00 23:00 07:00 Intake Total 0 ml 1400 ml Output Total 500 ml Balance 0 ml 900 ml Patient is somnolent but does open her eyes and respond appropriately by shaking her head when asked if she is in pain. She appears to be resting comfortably and respiratory rate is improved from the last couple of hours vital signs HEENT exam is unremarkable Chest bilateral equal air entry though diminished throughout no crackles or wheezes are noted Heart S1-S2 normal regular rate and rhythm no murmurs or gallops are noted Abdomen soft nontender nondistended no masses organomegaly noted Extremity exam is unremarkable for acute abnormality ALLERGIES Allergies: Allergies Coded Allergies Type Severity Reaction Last Updated Verified Sulfa (Sulfonamide Antibiotics) Allergy Intermediate 03/29/15 Yes penicillin Allergy Intermediate 03/29/15 Yes MEDS Medications: Current Medications Medications (Trade) Dose Ordered Sig/Jesus Manuel Start Time Stop Time Status Last Admin Dose Admin Acetaminophen (Tylenol) 650 mg PRN Q6HRS PRN 01/26/21 18:45 01/27/21 09:16 Azithromycin 250 ml @ 250 mls/hr Q24H 01/27/21 19:00 Cancel Azithromycin 500 mg/Sodium Chloride 250 ml @ 250 mls/hr Q24H 01/27/21 19:00 Ceftriaxone Sodium (Rocephin) 1 gm Q24H 01/27/21 16:00 Doxepin HCl (SINEquan) 100 mg QHS 01/26/21 21:00 01/27/21 11:34 DC 01/26/21 22:33 Duloxetine HCl (Cymbalta) 20 mg DAILY 01/28/21 09:00 Enoxaparin Sodium (Lovenox 40mg Syringe) 40 mg Q24H 01/26/21 21:00 01/27/21 10:11 DC 01/26/21 22:38 Enoxaparin Sodium (Lovenox 60mg Syringe) 60 mg Q12HR 01/27/21 11:00 01/27/21 11:45 Enoxaparin Sodium (Lovenox Per Pharmacy Prophylaxis Dosing) 1 each PRN DAILY PRN 01/26/21 20:15 01/27/21 10:11 DC Enoxaparin Sodium (Lovenox Per Pharmacy Treatment Dosing) 1 each PRN DAILY PRN 01/27/21 10:15 Guaifenesin (Robitussin Dm) 10 ml PRN Q6HRS PRN 01/26/21 18:45 Haloperidol Lactate (Haldol Inj) 5 mg PRN Q6HRS PRN 01/27/21 11:30 Hydroxyzine HCl (Atarax) 50 mg PRN QID PRN 01/26/21 18:45 01/27/21 11:34 DC Info (CONTRAST GIVEN -- Rx MONITORING) 1 each PRN DAILY PRN 01/26/21 13:00 01/28/21 12:59 Iohexol (Omnipaque 240 Mg/ml) 30 ml 1X ONCE 01/26/21 13:00 01/26/21 13:01 DC 01/26/21 13:45 Sodium Chloride 1,000 ml @ 1,000 mls/hr 1X ONCE 01/26/21 18:45 01/26/21 19:44 DC 01/26/21 22:28 Ziprasidone (Geodon) 40 mg BID 01/26/21 21:00 01/27/21 11:34 DC 01/27/21 09:16 Current Medications Medications (Trade) Dose Ordered Sig/Jesus Manuel Route PRN Reason Start Time Stop Time Status Last Admin Dose Admin Iohexol (Omnipaque 240 Mg/ml) 30 ml 1X ONCE PO 01/26/21 13:00 01/26/21 13:01 DC 01/26/21 13:45 Sodium Chloride 1,000 ml @ 1,000 mls/hr 1X ONCE IV 01/26/21 15:45 01/26/21 16:44 DC 01/26/21 16:11 Ceftriaxone Sodium (Rocephin) 1 gm 1X ONCE IVP 01/26/21 15:45 01/26/21 15:46 DC 01/26/21 16:12 Acetaminophen (Tylenol) 650 mg 1X ONCE PO 01/26/21 15:45 01/26/21 15:46 DC 01/26/21 16:13 Sodium Chloride 1,000 ml @ 125 mls/hr Q8H IV 01/26/21 17:00 01/27/21 16:59 01/27/21 09:15 Acetaminophen (Tylenol) 650 mg PRN Q6HRS PRN PO MILD PAIN / TEMP > 100.3'F 01/26/21 18:45 01/27/21 09:16 Azithromycin 500 mg/Sodium Chloride 250 ml @ 250 mls/hr 1X ONCE IV 01/26/21 19:00 01/26/21 19:59 DC 01/26/21 22:35 Sodium Chloride 1,000 ml @ 1,000 mls/hr 1X ONCE IV 01/26/21 18:45 01/26/21 19:44 DC 01/26/21 22:28 Doxepin HCl (SINEquan) 100 mg QHS PO 01/26/21 21:00 01/27/21 11:34 DC 01/26/21 22:33 Duloxetine HCl (Cymbalta) 90 mg DAILY PO 01/27/21 09:00 01/27/21 11:34 DC 01/27/21 09:16 Ziprasidone (Geodon) 60 mg BID PO 01/26/21 21:00 01/27/21 11:34 DC 01/27/21 09:16 Ziprasidone (Geodon) 40 mg BID PO 01/26/21 21:00 01/27/21 11:34 DC 01/27/21 09:16 Enoxaparin Sodium (Lovenox 40mg Syringe) 40 mg Q24H SQ 01/26/21 21:00 01/27/21 10:11 DC 01/26/21 22:38 Enoxaparin Sodium (Lovenox 60mg Syringe) 60 mg Q12HR SQ 01/27/21 11:00 01/27/21 11:45 LAB Lab: Laboratory Tests Test 01/26/21 14:35 01/26/21 14:40 01/26/21 17:49 01/26/21 20:07 D-Dimer (Jayde) 1.44 ug/mlFEU (0.00-0.50) H Urine Collection Type Unknown Urine Color Yellow Urine Clarity Cloudy Urine pH 6.0 (<5.0-8.0) Urine Specific [place] 1.020 (1.000-1.030) Urine Protein Negative mg/dL (NEG-TRACE) Urine Glucose (UA) Negative mg/dL (NEG) Urine Ketones (Stick) 40 mg/dL (NEG) Urine Blood Moderate (NEG) Urine Nitrite Positive (NEG) Urine Bilirubin Negative (NEG) Urine Urobilinogen Dipstick 1.0 mg/dL (0.2 mg/dL) Urine Leukocyte Esterase Moderate (NEG) Urine RBC Occ /HPF (0-2) Urine WBC 20-40 /HPF (0-4) Urine Squamous Epithelial Cells Few /LPF Urine Bacteria Many /HPF (0-FEW) Urine Mucus Mod /LPF Urine Opiates Screen Neg (NEG) Urine Methadone Screen Neg (NEG) Urine Barbiturates Neg (NEG) Urine Phencyclidine Screen Neg (NEG) Urine Amphetamine/Methamphetamine Neg (NEG) Urine Benzodiazepines Screen Pos (NEG) Urine Cocaine Screen Neg (NEG) Urine Cannabinoids Screen Pos (NEG) Urine Ethyl Alcohol Neg (NEG) SARS-CoV-2 RNA (RENE) Negative (Negative) SARS-CoV-2 Antigen (Rapid) Negative (NEGATIVE) Glucose (Fingerstick) 101 mg/dL (70-99) H O2 Saturation 94 % (92-99) Arterial Blood pH 7.45 (7.35-7.45) Arterial Blood pH (Temp corrected) 7.41 Arterial Blood pCO2 at Patient Temp 34 mmHg (35-46) L Arterial Blood pCO2 (Temp correct) 39 mmHg Arterial Blood pO2 at Patient Temp 69 mmHg (75-108) L Arterial Blood pO2 (Temp corrected) 85 mmHg Arterial Blood HCO3 24 mmol/L (21-28) Arterial Blood Base Excess 0 mmol/L (-3-3) FiO2 28 Test 01/26/21 20:20 01/27/21 06:15 Lactic Acid Level 0.9 mmol/L (0.4-2.0) White Blood Count 12.7 x10^3/uL (4.0-11.0) H Red Blood Count 4.31 x10^6/uL (3.50-5.40) Hemoglobin 12.9 g/dL (12.0-15.5) Hematocrit 38.1 % (36.0-47.0) Mean Corpuscular Volume 88 fL (79-100) Mean Corpuscular Hemoglobin 30 pg (25-35) Mean Corpuscular Hemoglobin Concent 34 g/dL (31-37) Red Cell Distribution Width 14.4 % (11.5-14.5) Platelet Count 122 x10^3/uL (140-400) L Neutrophils (%) (Auto) 89 % (31-73) H Lymphocytes (%) (Auto) 7 % (24-48) L Monocytes (%) (Auto) 4 % (0-9) Eosinophils (%) (Auto) 0 % (0-3) Basophils (%) (Auto) 0 % (0-3) Neutrophils # (Auto) 11.3 x10^3/uL (1.8-7.7) H Lymphocytes # (Auto) 0.8 x10^3/uL (1.0-4.8) L Monocytes # (Auto) 0.5 x10^3/uL (0.0-1.1) Eosinophils # (Auto) 0.0 x10^3/uL (0.0-0.7) Basophils # (Auto) 0.0 x10^3/uL (0.0-0.2) Sodium Level 144 mmol/L (136-145) Potassium Level 3.8 mmol/L (3.5-5.1) Chloride Level 107 mmol/L (98-107) Carbon Dioxide Level 28 mmol/L (21-32) Anion Gap 9 (6-14) Blood Urea Nitrogen 14 mg/dL (7-20) Creatinine 1.3 mg/dL (0.6-1.0) H Estimated GFR (Cockcroft-Gault) 42.4 BUN/Creatinine Ratio 11 (6-20) Glucose Level 92 mg/dL (70-99) Calcium Level 8.0 mg/dL (8.5-10.1) L Total Bilirubin 1.1 mg/dL (0.2-1.0) H Aspartate Amino Transferase (AST) 83 U/L (15-37) H Alanine Aminotransferase (ALT) 43 U/L (14-59) Alkaline Phosphatase 75 U/L (46-116) Total Protein 6.7 g/dL (6.4-8.2) Albumin 2.8 g/dL (3.4-5.0) L Albumin/Globulin Ratio 0.7 (1.0-1.7) L Laboratory Tests 01/27/21 06:15 Laboratory Tests 01/27/21 06:15 IMAGING Imaging: PATIENT: AILEEN DVAIES ACCOUNT: [id number] : 1965 LOCATION: ER AGE: 55 SEX: F EXAM STATUS: REG ER ORD. PHYSICIAN: LENI HUERTA MD REASON: abdominal pain, vomiting, confusion PROCEDURE: CT ABD PEL W/ORAL CONTRST ONLY CT abdomen and pelvis with oral contrast only. PQRS statement: CT scans at this facility use dose reduction including either automated exposure control, iterative reconstructions, and /or weight based radiation dosing via mA and kV modification when appropriate to reduce radiation dose to as low as reasonably achievable. HISTORY: Abdominal pain, vomiting, confusion. Abdomen findings: Mild discoid atelectasis at the lingula and right middle lobe. Mild reflux of contrast at the lower esophagus. Lumbar disc disease. Mild fatty atrophy of the pancreas. The left kidney is mildly atrophic. There is mild bilateral renal pelviectasis. No urinary calculi evident. Adrenals, spleen, liver and gallbladder are unremarkable. No obstruction or inflammation GI tract. Appendix is not visualized could be surgically absent or obscured by surrounding bowel loops. Aorta and iliac artery calcified plaque. No abdominal fluid. Pelvis findings: Uterus, ovaries, bladder, rectum and bones are unremarkable. No pelvic fluid. Osteitis pubis with bony sclerosis and bone spurring. IMPRESSION: 1. No acute process. No obstruction or inflammation of the GI tract. 2. Other findings as described above. Electronically signed by: Arturo Escobar MD (01/26/2021 2:04 PM) [id number] PATIENT: AILEEN DAVIES ACCOUNT: [id number] : 1965 LOCATION: ER AGE: 55 SEX: F EXAM STATUS: PRE ER ORD. PHYSICIAN: LENI HUERTA MD REASON: sob PROCEDURE: CHEST AP ONLY AP chest x-ray HISTORY: Shortness of breath. FINDINGS: ACDF hardware cervical spine. Heart size normal. Mediastinal silhouette is grossly normal given leftward rotation of the patient on image which somewhat limits assessment. No pneumothorax. No pleural effusions. Left lung is clear. Pulmonary interstitial and alveolar infiltrates at the right lung base. Old posterior ninth left rib deformity.. IMPRESSION: Right perihilar upper lobe, and right middle and lower lobe pulmonary interstitial and alveolar infiltrates may represent asymmetric pulmonary edema versus pneumonia including atypical infections such as viral pneumonia. Electronically signed by: Arturo Escobar MD (01/26/2021 12:42 PM) [id number] ASSESSMENT & PLAN A&P Plan as noted above This note was created using [employer] and may have omissions and/or errors due to the nature of real-time voice ac/dc rewinder. Justifications for Admission Other Justification HOMA GANT MD Jan 27, 2021 12:14
--- NOTE | 2021-01-27 12:52 | NUR ---
PT STILL LETHARGIC. PT'S BP 99/58, GLUCOSE 103, SPO2 97% ON 4L NC.
[2021-01-27 15:00] VITALS: BP 123/69
[2021-01-27] MEDS ORDERED: cefTRIAXone IV Push 1 GM VIAL. IVP SCH (16:00)
[2021-01-27] MEDS: cefTRIAXone IV Push 1 GM VIAL. IVP SCH (16:41)
[2021-01-27] MEDS ORDERED: AZITHRMYCN 500MG IVPB FOR OMNI 250 ML IV SCH (19:00)
[2021-01-27 19:56] VITALS: BP 99/61
[2021-01-27] MEDS ORDERED: ALBUTEROL SULFATE 2.5 MG/3 ML NEBU. INH PRN (21:30)
[2021-01-27 22:46] VITALS: BP 119/59
[2021-01-27] MEDS: GABAPENTIN 300 MG CAPSULE. PO SCH (22:54)
[2021-01-27] MEDS: ARIPiprazole 2 MG TABLET PO SCH (22:54)
[2021-01-27] MEDS: AZITHROMYCIN 500 MG in IV NORMAL SALINE 250ML 250 ML IV SCH (22:56)
[2021-01-28 02:53] VITALS: BP 110/61
--- NOTE | 2021-01-28 03:53 | CONS ---
DATE OF CONSULTATION: 01/27/2021 ATTENDING PHYSICIAN: Erika Brooks MD REASON FOR CONSULTATION: The patient is seen in pulmonary consultation at the request of Dr. Brooks for hypoxemia. Initial arterial blood gas: pH of 7.41, PaCO2 of 34, pO2 of 69 on 28% FiO2. HISTORY OF PRESENT ILLNESS: The patient is a 55-year-old with a history of tobacco dependence, COPD, unknown FEV1, presented with some encephalopathy, was found to be hypoxic. She also had a fever yesterday, 104.0. She tested negative for SARS-CoV-2, both rapid and molecular testing. Her white count was elevated. D-dimer was elevated. Chest x-ray revealed mainly a right-sided infiltrate. The patient also underwent a perfusion scan, which was positive. There is no ventilation for comparison. She was started on Zithromax and Rocephin. She also had a CT head. I have reviewed the report, there is no acute process. Today, the patient appears to be better oriented. She is a poor historian. She has been sick at home. Denies any hemoptysis. No recent travel. No prior history of DVT or pulmonary embolism. In fact, the only other past medical history is depression and anxiety. PAST SURGICAL HISTORY: None. PAST MEDICAL HISTORY: As indicated above, depression, anxiety, chronic pain, tobacco dependent, COPD, unknown FEV1. SOCIAL HISTORY: She smokes. Does not abuse alcohol. REVIEW OF SYSTEMS: As indicated above, otherwise a 10-point system was reviewed and negative. CONSTITUTIONAL: Positive for fever. HEENT: No headaches, diplopia or blurred vision. CARDIOVASCULAR: No chest pain or pressure. PULMONARY: As indicated above. She is not up to date on COVID-19 vaccination. GASTROINTESTINAL: No nausea, vomiting, diarrhea. GENITOURINARY: No dysuria or frequency. MUSCULOSKELETAL: No localized muscle aches or joint pain. SKIN: No new skin rashes. NEUROLOGIC: No headaches, diplopia or blurred vision. ALLERGIES: PENICILLIN AND SULFA. PHYSICAL EXAMINATION: GENERAL: The patient appeared to be older than stated age. VITAL SIGNS: Stable. O2 saturation was greater than 92%. T-max today 101.8. HEENT: Eyes: The sclerae were nonicteric. NECK: Jugular venous distention was not elevated. No lymphadenopathy. CHEST: Full expansion. LUNGS: Adequate flow with no wheezes. CARDIOVASCULAR: Regular rate and rhythm with S1, S2, no S3. ABDOMEN: Soft, nontender. EXTREMITIES: No clubbing, cyanosis or edema. LABORATORY DATA: Reviewed. Once again, white count was elevated. SARS-CoV-2 PCR was negative. Arterial blood gases indicated above. Electrolytes were noted. BUN and creatinine elevated, creatinine today 1.3. Total bilirubin was elevated. BNP was elevated. Albumin was low. CT abdomen and pelvis, no acute findings. IMPRESSION: 1. Acute hypoxemic respiratory failure. 2. Abnormal x-ray, compatible with pneumonia, suspect gram negative, possible gram-positive. 3. Fever secondary to above. 4. Leukocytosis. 5. Protein malnutrition. 6. Abnormal perfusion scan. 7. Clinical suspicion for pulmonary embolism is low. 8. Chronic obstructive pulmonary disease. 9. Tobacco dependent. 10. Anxiety and depression. DISCUSSION: We will continue treatment for pneumonia, my clinical suspicion for pulmonary embolism is low. The perfusion scan was not matched with a ventilation scan. We will proceed with CT angiogram after hydrating the patient and repeating BUN and creatinine. For now, we will initiate full-dose Lovenox. Continue antibiotics, steroids and nebulized treatments. PLAN: 1. As indicated above, we will treat for pneumonia. 2. CT angiogram when BUN and creatinine have corrected with hydration. 3. Empiric antibiotics. 4. Full dose Lovenox. 5. Continue home meds. 6. Follow up on blood cultures. 7. If fever persists, we will consult Infectious Disease service. I do appreciate the privilege in sharing in the patient's care. SHAYY/ALYSHA/DEBBIE DR: Abbey TID: [id number]
[2021-01-28] MEDS: LEVOTHYROXINE 75 MCG TABLET PO SCH (06:00)
[2021-01-28 06:54] VITALS: BP 122/62
[2021-01-28 07:23] LABS: BASO % 1 % (0-3); EOS % 0 % (0-3); HEMATOCRIT 33.5 % (36.0-47.0); HEMOGLOBIN 11.2 g/dL (12.0-15.5); LYMPH % 10 % (24-48); MEAN CORPUSCULAR HEMOGLOBIN 30 pg (25-35); MEAN CORPUSCULAR HGB CONC 33 g/dL (31-37); MEAN CORPUSCULAR VOLUME 89 fL (79-100); MONO # 0.5 x10^3/uL (0.0-1.1); MONO % 5 % (0-9); NEUT # 8.4 x10^3/uL (1.8-7.7); NEUT % 84 % (31-73); PLATELET COUNT 103 x10^3/uL (140-400); RED BLOOD COUNT 3.77 x10^6/uL (3.50-5.40); RED CELL DISTRIBUTION WIDTH 14.5 % (11.5-14.5)
[2021-01-28] MEDS: ALBUTEROL SULFATE 2.5 MG/3 ML NEBU. NEB SCH ×4 (07:44→20:47)
[2021-01-28] MEDS: BUDESONIDE 0.5 MG/2 ML NEBU. NEB SCH ×2 (07:44→20:47)
[2021-01-28 07:48] LABS: ALBUMIN 2.1 g/dL (3.4-5.0); ALBUMIN/GLOBULIN RATIO 0.6 (1.0-1.7); CALCIUM 7.9 mg/dL (8.5-10.1); CREATININE 0.9 mg/dL (0.6-1.0); GFR 64.8; POTASSIUM 3.5 mmol/L (3.5-5.1); TOTAL BILIRUBIN 0.6 mg/dL (0.2-1.0); TOTAL PROTEIN 5.7 g/dL (6.4-8.2)
--- NOTE | 2021-01-28 08:01 | RAD ---
Examination: Bilateral venous Doppler Indication: Leg swelling Technique: Ultrasound evaluation of the bilateral lower extremities was performed from the groin to t he upper calf with altamirano scale, spectral and color doppler evaluation. Comparison: None Findings: There is normal venous flow and compressibility of bilateral common femoral veins, femoral veins, popliteal veins, and visualized proximal calf veins. Impression: No evidence for deep vein thrombosis of bilateral lower extremities from the level of the calf veins to the groins. Electronically signed by: Kevin Andrade MD (01/28/2021 7:58 AM) JAQUELIN
[2021-01-28] MEDS: GABAPENTIN 300 MG CAPSULE. PO SCH ×3 (08:32→20:39)
[2021-01-28] MEDS: PANTOPRAZOLE 40 MG TABLET.DR. PO SCH (08:32)
[2021-01-28] MEDS: ATORVASTATIN CALCIUM 10 MG TABLET. PO SCH (08:32)
[2021-01-28] MEDS: ZIPRASIDONE 20 MG CAPSULE PO SCH ×2 (08:32→20:39)
[2021-01-28] MEDS: DULoxetine HCL 20 MG CAPSULE.DR PO SCH (08:32)
[2021-01-28] MEDS: guaiFENesin DM 200MG/20MG 10 ML SYRUP PO PRN (08:37)
[2021-01-28] MEDS: ACETAMINOPHEN 325 MG TABLET. PO PRN (08:37)
[2021-01-28] MEDS ORDERED: IOHEXOL 350 MG/ML 100 ML VIAL. IV ONE (08:45)
[2021-01-28] MEDS ORDERED: CONTRAST GIVEN. MC PRN (08:45)
--- NOTE | 2021-01-28 10:12 | PDOC ---
PULMONARY PROGRESS NOTES DATE: 01/28/21 TIME: 10:12 Subjective Pt. resting on 3 liters NC feeling better no overnight events Vitals Vital Signs Date Time Temp Pulse Resp B/P (MAP) Pulse Ox O2 Delivery O2 Flow Rate FiO2 01/28/21 07:45 3.0 01/28/21 06:54 98.4 103 24 122/62 (82) 94 Nasal Cannula 98.4 ROS: No Nausea, No Chest Pain, No Abdominal Pain, No Increase Cough General: Alert HEENT: Other (poor dentation ) Lungs: Crackles Cardiovascular: S1 Neuro Exam: Alert Extremities: No Edema Labs Laboratory Tests Test 01/26/21 11:54 01/26/21 14:35 01/26/21 14:40 01/26/21 17:49 White Blood Count 18.3 x10^3/uL (4.0-11.0) Red Blood Count 4.67 x10^6/uL (3.50-5.40) Hemoglobin 13.9 g/dL (12.0-15.5) Hematocrit 41.3 % (36.0-47.0) Mean Corpuscular Volume 89 fL (79-100) Mean Corpuscular Hemoglobin 30 pg (25-35) Mean Corpuscular Hemoglobin Concent 34 g/dL (31-37) Red Cell Distribution Width 14.7 % (11.5-14.5) Platelet Count 162 x10^3/uL (140-400) Neutrophils (%) (Auto) 91 % (31-73) Lymphocytes (%) (Auto) 3 % (24-48) Monocytes (%) (Auto) 5 % (0-9) Eosinophils (%) (Auto) 0 % (0-3) Basophils (%) (Auto) 1 % (0-3) Neutrophils # (Auto) 16.7 x10^3/uL (1.8-7.7) Lymphocytes # (Auto) 0.6 x10^3/uL (1.0-4.8) Monocytes # (Auto) 0.9 x10^3/uL (0.0-1.1) Eosinophils # (Auto) 0.0 x10^3/uL (0.0-0.7) Basophils # (Auto) 0.1 x10^3/uL (0.0-0.2) Segmented Neutrophils % 88 % (35-66) Band Neutrophils % 2 % (0-9) Lymphocytes % 5 % (24-48) Monocytes % 5 % (0-10) Platelet Estimate Adequate (ADEQUATE) Sodium Level 139 mmol/L (136-145) Potassium Level 3.9 mmol/L (3.5-5.1) Chloride Level 101 mmol/L (98-107) Carbon Dioxide Level 28 mmol/L (21-32) Anion Gap 10 (6-14) Blood Urea Nitrogen 12 mg/dL (7-20) Creatinine 1.5 mg/dL (0.6-1.0) Estimated GFR (Cockcroft-Gault) 35.9 BUN/Creatinine Ratio 8 (6-20) Glucose Level 96 mg/dL (70-99) Calcium Level 9.0 mg/dL (8.5-10.1) Total Bilirubin 1.0 mg/dL (0.2-1.0) Aspartate Amino Transf (AST/SGOT) 56 U/L (15-37) Alanine Aminotransferase (ALT/SGPT) 37 U/L (14-59) Alkaline Phosphatase 107 U/L (46-116) Troponin I Quantitative < 0.017 ng/mL (0.000-0.055) TR-Lys-O-Type Natriuretic Peptide 688 pg/mL (0-124) Total Protein 8.1 g/dL (6.4-8.2) Albumin 3.8 g/dL (3.4-5.0) Albumin/Globulin Ratio 0.9 (1.0-1.7) Lipase 16 U/L (73-393) D-Dimer (Jayde) 1.44 ug/mlFEU (0.00-0.50) Urine Collection Type Unknown Urine Color Yellow Urine Clarity Cloudy Urine pH 6.0 (<5.0-8.0) Urine Specific Enloe 1.020 (1.000-1.030) Urine Protein Negative mg/dL (NEG-TRACE) Urine Glucose (UA) Negative mg/dL (NEG) Urine Ketones (Stick) 40 mg/dL (NEG) Urine Blood Moderate (NEG) Urine Nitrite Positive (NEG) Urine Bilirubin Negative (NEG) Urine Urobilinogen Dipstick 1.0 mg/dL (0.2 mg/dL) Urine Leukocyte Esterase Moderate (NEG) Urine RBC Occ /HPF (0-2) Urine WBC 20-40 /HPF (0-4) Urine Squamous Epithelial Cells Few /LPF Urine Bacteria Many /HPF (0-FEW) Urine Mucus Mod /LPF Urine Opiates Screen Neg (NEG) Urine Methadone Screen Neg (NEG) Urine Barbiturates Neg (NEG) Urine Phencyclidine Screen Neg (NEG) Urine Amphetamine/Methamphetamine Neg (NEG) Urine Benzodiazepines Screen Pos (NEG) Urine Cocaine Screen Neg (NEG) Urine Cannabinoids Screen Pos (NEG) Urine Ethyl Alcohol Neg (NEG) SARS-CoV-2 RNA (RENE) Negative (Negative) SARS-CoV-2 Antigen (Rapid) Negative (NEGATIVE) Glucose (Fingerstick) 101 mg/dL (70-99) Test 01/26/21 20:07 01/26/21 20:20 01/27/21 06:15 01/27/21 12:42 O2 Saturation 94 % (92-99) Arterial Blood pH 7.45 (7.35-7.45) Arterial Blood pH (Temp corrected) 7.41 Arterial Blood pCO2 at Patient Temp 34 mmHg (35-46) Arterial Blood pCO2 (Temp correct) 39 mmHg Arterial Blood pO2 at Patient Temp 69 mmHg (75-108) Arterial Blood pO2 (Temp corrected) 85 mmHg Arterial Blood HCO3 24 mmol/L (21-28) Arterial Blood Base Excess 0 mmol/L (-3-3) FiO2 28 Lactic Acid Level 0.9 mmol/L (0.4-2.0) White Blood Count 12.7 x10^3/uL (4.0-11.0) Red Blood Count 4.31 x10^6/uL (3.50-5.40) Hemoglobin 12.9 g/dL (12.0-15.5) Hematocrit 38.1 % (36.0-47.0) Mean Corpuscular Volume 88 fL (79-100) Mean Corpuscular Hemoglobin 30 pg (25-35) Mean Corpuscular Hemoglobin Concent 34 g/dL (31-37) Red Cell Distribution Width 14.4 % (11.5-14.5) Platelet Count 122 x10^3/uL (140-400) Neutrophils (%) (Auto) 89 % (31-73) Lymphocytes (%) (Auto) 7 % (24-48) Monocytes (%) (Auto) 4 % (0-9) Eosinophils (%) (Auto) 0 % (0-3) Basophils (%) (Auto) 0 % (0-3) Neutrophils # (Auto) 11.3 x10^3/uL (1.8-7.7) Lymphocytes # (Auto) 0.8 x10^3/uL (1.0-4.8) Monocytes # (Auto) 0.5 x10^3/uL (0.0-1.1) Eosinophils # (Auto) 0.0 x10^3/uL (0.0-0.7) Basophils # (Auto) 0.0 x10^3/uL (0.0-0.2) Sodium Level 144 mmol/L (136-145) Potassium Level 3.8 mmol/L (3.5-5.1) Chloride Level 107 mmol/L (98-107) Carbon Dioxide Level 28 mmol/L (21-32) Anion Gap 9 (6-14) Blood Urea Nitrogen 14 mg/dL (7-20) Creatinine 1.3 mg/dL (0.6-1.0) Estimated GFR (Cockcroft-Gault) 42.4 BUN/Creatinine Ratio 11 (6-20) Glucose Level 92 mg/dL (70-99) Calcium Level 8.0 mg/dL (8.5-10.1) Total Bilirubin 1.1 mg/dL (0.2-1.0) Aspartate Amino Transf (AST/SGOT) 83 U/L (15-37) Alanine Aminotransferase (ALT/SGPT) 43 U/L (14-59) Alkaline Phosphatase 75 U/L (46-116) Total Protein 6.7 g/dL (6.4-8.2) Albumin 2.8 g/dL (3.4-5.0) Albumin/Globulin Ratio 0.7 (1.0-1.7) Glucose (Fingerstick) 104 mg/dL (70-99) Test 01/28/21 05:40 White Blood Count 10.0 x10^3/uL (4.0-11.0) Red Blood Count 3.77 x10^6/uL (3.50-5.40) Hemoglobin 11.2 g/dL (12.0-15.5) Hematocrit 33.5 % (36.0-47.0) Mean Corpuscular Volume 89 fL (79-100) Mean Corpuscular Hemoglobin 30 pg (25-35) Mean Corpuscular Hemoglobin Concent 33 g/dL (31-37) Red Cell Distribution Width 14.5 % (11.5-14.5) Platelet Count 103 x10^3/uL (140-400) Neutrophils (%) (Auto) 84 % (31-73) Lymphocytes (%) (Auto) 10 % (24-48) Monocytes (%) (Auto) 5 % (0-9) Eosinophils (%) (Auto) 0 % (0-3) Basophils (%) (Auto) 1 % (0-3) Neutrophils # (Auto) 8.4 x10^3/uL (1.8-7.7) Lymphocytes # (Auto) 1.0 x10^3/uL (1.0-4.8) Monocytes # (Auto) 0.5 x10^3/uL (0.0-1.1) Eosinophils # (Auto) 0.0 x10^3/uL (0.0-0.7) Basophils # (Auto) 0.0 x10^3/uL (0.0-0.2) Sodium Level 143 mmol/L (136-145) Potassium Level 3.5 mmol/L (3.5-5.1) Chloride Level 106 mmol/L (98-107) Carbon Dioxide Level 26 mmol/L (21-32) Anion Gap 11 (6-14) Blood Urea Nitrogen 16 mg/dL (7-20) Creatinine 0.9 mg/dL (0.6-1.0) Estimated GFR (Cockcroft-Gault) 64.8 BUN/Creatinine Ratio 18 (6-20) Glucose Level 71 mg/dL (70-99) Calcium Level 7.9 mg/dL (8.5-10.1) Total Bilirubin 0.6 mg/dL (0.2-1.0) Aspartate Amino Transf (AST/SGOT) 79 U/L (15-37) Alanine Aminotransferase (ALT/SGPT) 45 U/L (14-59) Alkaline Phosphatase 73 U/L (46-116) Total Protein 5.7 g/dL (6.4-8.2) Albumin 2.1 g/dL (3.4-5.0) Albumin/Globulin Ratio 0.6 (1.0-1.7) Laboratory Tests Test 01/27/21 12:42 01/28/21 05:40 Glucose (Fingerstick) 104 mg/dL (70-99) White Blood Count 10.0 x10^3/uL (4.0-11.0) Red Blood Count 3.77 x10^6/uL (3.50-5.40) Hemoglobin 11.2 g/dL (12.0-15.5) Hematocrit 33.5 % (36.0-47.0) Mean Corpuscular Volume 89 fL (79-100) Mean Corpuscular Hemoglobin 30 pg (25-35) Mean Corpuscular Hemoglobin Concent 33 g/dL (31-37) Red Cell Distribution Width 14.5 % (11.5-14.5) Platelet Count 103 x10^3/uL (140-400) Neutrophils (%) (Auto) 84 % (31-73) Lymphocytes (%) (Auto) 10 % (24-48) Monocytes (%) (Auto) 5 % (0-9) Eosinophils (%) (Auto) 0 % (0-3) Basophils (%) (Auto) 1 % (0-3) Neutrophils # (Auto) 8.4 x10^3/uL (1.8-7.7) Lymphocytes # (Auto) 1.0 x10^3/uL (1.0-4.8) Monocytes # (Auto) 0.5 x10^3/uL (0.0-1.1) Eosinophils # (Auto) 0.0 x10^3/uL (0.0-0.7) Basophils # (Auto) 0.0 x10^3/uL (0.0-0.2) Sodium Level 143 mmol/L (136-145) Potassium Level 3.5 mmol/L (3.5-5.1) Chloride Level 106 mmol/L (98-107) Carbon Dioxide Level 26 mmol/L (21-32) Anion Gap 11 (6-14) Blood Urea Nitrogen 16 mg/dL (7-20) Creatinine 0.9 mg/dL (0.6-1.0) Estimated GFR (Cockcroft-Gault) 64.8 BUN/Creatinine Ratio 18 (6-20) Glucose Level 71 mg/dL (70-99) Calcium Level 7.9 mg/dL (8.5-10.1) Total Bilirubin 0.6 mg/dL (0.2-1.0) Aspartate Amino Transf (AST/SGOT) 79 U/L (15-37) Alanine Aminotransferase (ALT/SGPT) 45 U/L (14-59) Alkaline Phosphatase 73 U/L (46-116) Total Protein 5.7 g/dL (6.4-8.2) Albumin 2.1 g/dL (3.4-5.0) Albumin/Globulin Ratio 0.6 (1.0-1.7) Medications Active Scripts Medications Dose Route/Sig Max Daily Dose Days Date Category Proair Hfa Inhaler (Albuterol Sulfate) 8.5 Gm Hfa.aer.ad 2 Puff IH PRN Q4HRS PRN 21 01/27/21 Reported Advair 500-50 Diskus (Fluticasone/Salmeterol) 1 Each Disk.w.dev 1 Puff IH BID 01/27/21 Reported Geodon (Ziprasidone Hcl) 40 Mg Capsule 80 Mg PO BID 01/27/21 Reported Levothyroxine Sodium 75 Mcg Tablet 1 Tab PO DAILY05 01/27/21 Reported Atorvastatin Calcium 10 Mg Tablet 1 Tab PO DAILY 01/27/21 Reported Diazepam 10 Mg Tablet 10 Mg PO BID 01/27/21 Reported Pantoprazole Sodium (Pantoprazole Sodium) 40 Mg Tablet.dr 40 Mg PO DAILYAC 01/27/21 Reported Abilify (Aripiprazole) 2 Mg Tablet 1 Tab PO DAILY 30 01/27/21 Reported Gabapentin (Gabapentin) 300 Mg Capsule 300 Mg PO TID 01/27/21 Reported Hydroxyzine Hcl 50 Mg Tablet 50 Mg PO PRN QID PRN 03/26/15 Reported Ziprasidone Hcl 80 Mg Capsule 100 Mg PO BID 03/26/15 Reported Doxepin Hcl 100 Mg Capsule 100 Mg PO QHS 03/26/15 Reported Cymbalta (Duloxetine Hcl) 60 Mg Capsule.dr 90 Mg PO DAILY 03/25/[address] chest IMPRESSION: 1. No acute pulmonary embolism. 2. Large dense right upper lobe consolidation and milder opacities in the right lower lobe and left lung. Findings are consistent with multifocal pneumonia. 3. Moderate centrilobular emphysema. Small right pleural effusion. 4. Mildly enlarged mediastinal and hilar lymph nodes, likely reactive. Impression . IMPRESSION: 1. Acute hypoxemic respiratory failure. 2. Abnormal x-ray, compatible with pneumonia, suspect gram negative, possible gram-positive. 3. Fever secondary to above. 4. Leukocytosis. 5. Protein malnutrition. 6. Abnormal perfusion scan. 7. Clinical suspicion for pulmonary embolism is low. 8. Chronic obstructive pulmonary disease. 9. Tobacco dependent. 10. Anxiety and depression. CT CHEST IMPRESSION: 1. No acute pulmonary embolism. 2. Large dense right upper lobe consolidation and milder opacities in the right lower lobe and left lung. Findings are consistent with multifocal pneumonia. 3. Moderate centrilobular emphysema. Small right pleural effusion. 4. Mildly enlarged mediastinal and hilar lymph nodes, likely reactive. Electronically signed by: Usha Sarmiento MD (01/28/2021 10:12 AM) [id number] Bilateral venous Doppler results Impression: No evidence for deep vein thrombosis of bilateral lower extremities from the level of the calf veins to the groins. Plan . Updated 01/28/21 Continue Supplemental oxygen to keep sats above 92% on [address] angiogram no evidence of pulmonary embolism, discontinue full dose anticoagulation Continue antibiotics for pneumonia azithromycin and rocephin-- follow cultures Repeat CT chest in 2 months BLE US neg for DVT PT/OT DVT/GI PPX D/W RN PLAN 01/27/21 1. As indicated above, we will treat for pneumonia. 2. CT angiogram when BUN and creatinine have corrected with hydration. 3. Empiric antibiotics. 4. Full dose Lovenox. 5. Continue home meds. 6. Follow up on blood cultures. 7. If fever persists, we will consult Infectious Disease service. MARTIN CALABRESE MD Jan 28, 2021 10:12
--- NOTE | 2021-01-28 10:15 | RAD ---
Study: CT CHEST WITH CONTRAST - PULMONARY ANGIOGRAM History: Hypoxia Comparison: VQ scan 01/26/2021 Technique: Helical CT of the chest performed after the administration of 90 mL Omnipaque 350 intrave nous contrast and timed for angiographic evaluation of the pulmonary arteries per PE protocol. Mace l and sagittal 3D MIP reformations were obtained. One or more of the following individualized dose reduction techniques were utilized for this examinat ion: 1. Automated exposure control 2. Adjustment of the mA and/or kV according to patient size 3. Use of iterative reconstruction technique. Findings: Pulmonary Arteries: Contrast bolus is adequate. There is no acute pulmonary embolism. Heart/Systemic Vasculature: The heart is normal in size. There is a small pericardial effusion. Thora cic aorta is normal in caliber. Mediastinum: There is are mildly enlarged mediastinal and right hilar lymph nodes. Lungs: There is a large dense consolidation in the right upper lobe and mild perihilar consolidative opacities in the right lower lobe. There are mild perihilar groundglass opacities in the left lower l obe and lingula. There is moderate centrilobular emphysema. Small right pleural effusion. Neck/Axilla/Body Wall: Unremarkable. No axillary lymphadenopathy. Upper Abdomen: Unremarkable Bones: No acute osseous abnormality. IMPRESSION: 1. No acute pulmonary embolism. 2. Large dense right upper lobe consolidation and milder opacities in the right lower lobe and left lung. Findings are consistent with multifocal pneumonia. 3. Moderate centrilobular emphysema. Small right pleural effusion. 4. Mildly enlarged mediastinal and hilar lymph nodes, likely reactive. Electronically signed by: Usha Sarmiento MD (01/28/2021 10:12 AM) [id number]
[2021-01-28 10:18] VITALS: BP 98/59
--- NOTE | 2021-01-28 14:35 | PDOC ---
[employer] PROGRESS NOTE Date of Service DOS: DATE: 01/28/21 TIME: 14:33 Chief Complaint Chief Complaint Assessment/Plan sepsis due to multifocal CAP Acute cystitis acute hypoxic respiratory failure Negative for COVID-19 infection acute metabolic encephalopathy, delirium from sepsisimproved nausea, could also be COVID Bipolar disorder Continue empiric IV antibiotics Pending blood and urine cultures Pending chest CTA to rule out PE History of Present Illness History of Present Illness 55-year-old female admit for hypoxia and high fever, UTI noted, abx given, CT chest showed poss unilateraly viral pneumonia, not clearly COVid on xray. she has been confused today and was slurred speech on the CV unit. she had abd pain earlier, this is improve,d - recent diarrnea. pain 11/24 now, 02/23 earlier She has not had a Covid vaccines. Vitals/I&O Vitals/I&O: Vital Signs Date Time Temp Pulse Resp B/P (MAP) Pulse Ox O2 Delivery O2 Flow Rate FiO2 01/28/21 11:36 Nasal Cannula 3.0 01/28/21 10:18 98.4 87 24 98/59 (72) 97 98.4 I & O 01/27/21 01/27/21 01/28/21 15:00 23:00 07:00 Intake Total 2340 ml 400 ml 250 ml Output Total 200 ml 400 ml Balance 2140 ml 0 ml 250 ml Physical Exam General: Alert, No acute distress, moderate distress, Other (confused, lethargic, does remember me from 2014) Abdomen: Normal bowel sounds, Soft Extremities: No cyanosis, No edema, Normal pulses Skin: Other (old skin injuries look like cutting, she says her dogs, ) Labs Labs: Laboratory Tests Test 01/28/21 05:40 White Blood Count 10.0 x10^3/uL (4.0-11.0) Red Blood Count 3.77 x10^6/uL (3.50-5.40) Hemoglobin 11.2 g/dL (12.0-15.5) Hematocrit 33.5 % (36.0-47.0) Mean Corpuscular Volume 89 fL (79-100) Mean Corpuscular Hemoglobin 30 pg (25-35) Mean Corpuscular Hemoglobin Concent 33 g/dL (31-37) Red Cell Distribution Width 14.5 % (11.5-14.5) Platelet Count 103 x10^3/uL (140-400) Neutrophils (%) (Auto) 84 % (31-73) Lymphocytes (%) (Auto) 10 % (24-48) Monocytes (%) (Auto) 5 % (0-9) Eosinophils (%) (Auto) 0 % (0-3) Basophils (%) (Auto) 1 % (0-3) Neutrophils # (Auto) 8.4 x10^3/uL (1.8-7.7) Lymphocytes # (Auto) 1.0 x10^3/uL (1.0-4.8) Monocytes # (Auto) 0.5 x10^3/uL (0.0-1.1) Eosinophils # (Auto) 0.0 x10^3/uL (0.0-0.7) Basophils # (Auto) 0.0 x10^3/uL (0.0-0.2) Sodium Level 143 mmol/L (136-145) Potassium Level 3.5 mmol/L (3.5-5.1) Chloride Level 106 mmol/L (98-107) Carbon Dioxide Level 26 mmol/L (21-32) Anion Gap 11 (6-14) Blood Urea Nitrogen 16 mg/dL (7-20) Creatinine 0.9 mg/dL (0.6-1.0) Estimated GFR (Cockcroft-Gault) 64.8 BUN/Creatinine Ratio 18 (6-20) Glucose Level 71 mg/dL (70-99) Calcium Level 7.9 mg/dL (8.5-10.1) Total Bilirubin 0.6 mg/dL (0.2-1.0) Aspartate Amino Transf (AST/SGOT) 79 U/L (15-37) Alanine Aminotransferase (ALT/SGPT) 45 U/L (14-59) Alkaline Phosphatase 73 U/L (46-116) Total Protein 5.7 g/dL (6.4-8.2) Albumin 2.1 g/dL (3.4-5.0) Albumin/Globulin Ratio 0.6 (1.0-1.7) Assessment and Plan Assessmemt and Plan Problems Medical Problems: (1) Delirium Status: Acute (2) Hypoxia Status: Acute (3) Person under investigation for COVID-19 Status: Acute (4) Pyelonephritis Status: Acute Comment Review of Relevant I have reviewed the following items sherin (where applicable) has been applied. Medications: Current Medications Medications (Trade) Dose Ordered Sig/Jesus Manuel Route PRN Reason Start Time Stop Time Status Last Admin Dose Admin Duloxetine HCl (Cymbalta) 20 mg DAILY PO 01/28/21 09:00 01/28/21 08:32 Ceftriaxone Sodium (Rocephin) 1 gm Q24H IVP 01/27/21 16:00 01/27/21 16:41 Azithromycin 500 mg/Sodium Chloride 250 ml @ 250 mls/hr Q24H IV 01/27/21 19:00 01/27/21 22:56 Albuterol Sulfate (Ventolin Neb Soln) 2.5 mg PRN Q4HRS PRN INH wheezing 01/27/21 21:30 01/27/21 23:00 Aripiprazole (Abilify) 2 mg QHS PO 01/27/21 22:30 01/27/21 22:54 Atorvastatin Calcium (Lipitor) 10 mg DAILY PO 01/28/21 09:00 01/28/21 08:32 Gabapentin (Neurontin) 300 mg TID PO 01/27/21 22:00 01/28/21 13:57 Levothyroxine Sodium (Synthroid) 75 mcg DAILY06 PO 01/28/21 06:00 01/28/21 06:00 Pantoprazole Sodium (Protonix) 40 mg DAILYAC PO 01/28/21 07:30 01/28/21 08:32 Budesonide (Pulmicort) 0.5 mg RTBID NEB 01/28/21 08:00 01/28/21 07:44 Ziprasidone (Geodon) 40 mg BID PO 01/27/21 22:00 01/28/21 08:32 Albuterol Sulfate (Ventolin Neb Soln) 2.5 mg RTQID NEB 01/28/21 08:00 01/28/21 11:36 Iohexol (Omnipaque 350 Mg/ml) 90 ml 1X ONCE IV 01/28/21 08:45 01/28/21 08:46 DC 01/28/21 08:45 Justifications for Admission Other Justification JOHN MALDONADO MD Jan 28, 2021 14:35
--- NOTE | 2021-01-28 15:21 | NUR ---
SS following for discharge planning. SS reviewed pt chart and discussed with pt RN. Pt is currently requiring oxygen at three liters nasal canula. COVID19 negative. Pt on IV Rocephin and IV Azithromycin. Pulmonology following. Pt has no home oxygen. SS will continue to follow for discharge planning.
[2021-01-28 15:41] VITALS: BP 100/54
[2021-01-28] MEDS: cefTRIAXone IV Push 1 GM VIAL. IVP SCH (17:48)
[2021-01-28] MEDS: AZITHROMYCIN 500 MG in IV NORMAL SALINE 250ML 250 ML IV SCH (17:48)
[2021-01-28 19:43] VITALS: BP 110/63
[2021-01-28] MEDS: ARIPiprazole 2 MG TABLET PO SCH (20:39)
[2021-01-28 23:02] VITALS: BP 111/53
[2021-01-29] VITALS (11 sets, daily range): BP systolic 79–111; BP diastolic 42–68
[2021-01-29] MEDS: guaiFENesin DM 200MG/20MG 10 ML SYRUP PO PRN ×2 (01:48→20:07)
[2021-01-29] MEDS: LEVOTHYROXINE 75 MCG TABLET PO SCH (06:27)
[2021-01-29] MEDS: PANTOPRAZOLE 40 MG TABLET.DR. PO SCH (06:27)
[2021-01-29] MEDS: BUDESONIDE 0.5 MG/2 ML NEBU. NEB SCH ×2 (07:34→20:29)
[2021-01-29] MEDS: ALBUTEROL SULFATE 2.5 MG/3 ML NEBU. NEB SCH ×4 (07:34→20:29)
[2021-01-29] MEDS: ATORVASTATIN CALCIUM 10 MG TABLET. PO SCH (08:49)
[2021-01-29] MEDS: ZIPRASIDONE 20 MG CAPSULE PO SCH ×2 (08:49→20:06)
[2021-01-29] MEDS: DULoxetine HCL 20 MG CAPSULE.DR PO SCH (08:49)
[2021-01-29] MEDS: ENOXAPARIN 40 MG/0.4 ML SYRINGE. SQ SCH (08:49)
[2021-01-29] MEDS: GABAPENTIN 300 MG CAPSULE. PO SCH ×3 (08:49→20:06)
--- NOTE | 2021-01-29 09:11 | PDOC ---
PULMONARY PROGRESS NOTES DATE: 01/29/21 TIME: 09:11 Subjective Pt. resting on 3 liters NC feeling better no overnight events Vitals Vital Signs Date Time Temp Pulse Resp B/P (MAP) Pulse Ox O2 Delivery O2 Flow Rate FiO2 01/29/21 07:35 Nasal Cannula 2.0 01/29/21 07:00 98.4 97 22 108/63 (78) 96 98.4 ROS: No Nausea, No Chest Pain, No Abdominal Pain, No Increase Cough General: Alert HEENT: Other (poor dentation ) Lungs: Crackles Cardiovascular: S1 Neuro Exam: Alert Extremities: No Edema Labs Laboratory Tests Test 01/27/21 12:42 01/28/21 05:40 Glucose (Fingerstick) 104 mg/dL (70-99) White Blood Count 10.0 x10^3/uL (4.0-11.0) Red Blood Count 3.77 x10^6/uL (3.50-5.40) Hemoglobin 11.2 g/dL (12.0-15.5) Hematocrit 33.5 % (36.0-47.0) Mean Corpuscular Volume 89 fL (79-100) Mean Corpuscular Hemoglobin 30 pg (25-35) Mean Corpuscular Hemoglobin Concent 33 g/dL (31-37) Red Cell Distribution Width 14.5 % (11.5-14.5) Platelet Count 103 x10^3/uL (140-400) Neutrophils (%) (Auto) 84 % (31-73) Lymphocytes (%) (Auto) 10 % (24-48) Monocytes (%) (Auto) 5 % (0-9) Eosinophils (%) (Auto) 0 % (0-3) Basophils (%) (Auto) 1 % (0-3) Neutrophils # (Auto) 8.4 x10^3/uL (1.8-7.7) Lymphocytes # (Auto) 1.0 x10^3/uL (1.0-4.8) Monocytes # (Auto) 0.5 x10^3/uL (0.0-1.1) Eosinophils # (Auto) 0.0 x10^3/uL (0.0-0.7) Basophils # (Auto) 0.0 x10^3/uL (0.0-0.2) Sodium Level 143 mmol/L (136-145) Potassium Level 3.5 mmol/L (3.5-5.1) Chloride Level 106 mmol/L (98-107) Carbon Dioxide Level 26 mmol/L (21-32) Anion Gap 11 (6-14) Blood Urea Nitrogen 16 mg/dL (7-20) Creatinine 0.9 mg/dL (0.6-1.0) Estimated GFR (Cockcroft-Gault) 64.8 BUN/Creatinine Ratio 18 (6-20) Glucose Level 71 mg/dL (70-99) Calcium Level 7.9 mg/dL (8.5-10.1) Total Bilirubin 0.6 mg/dL (0.2-1.0) Aspartate Amino Transf (AST/SGOT) 79 U/L (15-37) Alanine Aminotransferase (ALT/SGPT) 45 U/L (14-59) Alkaline Phosphatase 73 U/L (46-116) Total Protein 5.7 g/dL (6.4-8.2) Albumin 2.1 g/dL (3.4-5.0) Albumin/Globulin Ratio 0.6 (1.0-1.7) Medications Active Scripts Medications Dose Route/Sig Max Daily Dose Days Date Category Proair Hfa Inhaler (Albuterol Sulfate) 8.5 Gm Hfa.aer.ad 2 Puff IH PRN Q4HRS PRN 21 01/27/21 Reported Advair 500-50 Diskus (Fluticasone/Salmeterol) 1 Each Disk.w.dev 1 Puff IH BID 01/27/21 Reported Geodon (Ziprasidone Hcl) 40 Mg Capsule 80 Mg PO BID 01/27/21 Reported Levothyroxine Sodium 75 Mcg Tablet 1 Tab PO DAILY05 01/27/21 Reported Atorvastatin Calcium 10 Mg Tablet 1 Tab PO DAILY 01/27/21 Reported Diazepam 10 Mg Tablet 10 Mg PO BID 01/27/21 Reported Pantoprazole Sodium (Pantoprazole Sodium) 40 Mg Tablet.dr 40 Mg PO DAILYAC 01/27/21 Reported Abilify (Aripiprazole) 2 Mg Tablet 1 Tab PO DAILY 30 01/27/21 Reported Gabapentin (Gabapentin) 300 Mg Capsule 300 Mg PO TID 01/27/21 Reported Hydroxyzine Hcl 50 Mg Tablet 50 Mg PO PRN QID PRN 8/10/15 Reported Ziprasidone Hcl 80 Mg Capsule 100 Mg PO BID 03/26/15 Reported Doxepin Hcl 100 Mg Capsule 100 Mg PO QHS 03/26/15 Reported Cymbalta (Duloxetine Hcl) 60 Mg Capsule.dr 90 Mg PO DAILY 03/25/[address] chest IMPRESSION: 1. No acute pulmonary embolism. 2. Large dense right upper lobe consolidation and milder opacities in the right lower lobe and left lung. Findings are consistent with multifocal pneumonia. 3. Moderate centrilobular emphysema. Small right pleural effusion. 4. Mildly enlarged mediastinal and hilar lymph nodes, likely reactive. Impression . IMPRESSION: 1. Acute hypoxemic respiratory failure.--improving 2. Abnormal x-ray, compatible with pneumonia, suspect gram negative, possible gram-positive. 3. Fever secondary to above.--resolved 4. Leukocytosis--improved 5. Protein malnutrition. 6. Abnormal perfusion scan. 7. Clinical suspicion for pulmonary embolism is low. 8. Chronic obstructive pulmonary disease. 9. Tobacco dependent. 10. Anxiety and depression. CT CHEST IMPRESSION: 1. No acute pulmonary embolism. 2. Large dense right upper lobe consolidation and milder opacities in the right lower lobe and left lung. Findings are consistent with multifocal pneumonia. 3. Moderate centrilobular emphysema. Small right pleural effusion. 4. Mildly enlarged mediastinal and hilar lymph nodes, likely reactive. Electronically signed by: Usha Sarmiento MD (01/28/2021 10:12 AM) [id number] Bilateral venous Doppler results Impression: No evidence for deep vein thrombosis of bilateral lower extremities from the level of the calf veins to the groins. Plan . Updated 01/29/21 Continue Supplemental oxygen to keep sats above 92% on 3 liters NC 6 min walk prior to discharge NEBS CT angiogram no evidence of pulmonary embolism, discontinue full dose anticoag ulation Continue antibiotics for pneumonia azithromycin and rocephin-- follow cultures Repeat CT chest in 2 months BLE US neg for DVT PT/OT --aggressive therapy Social work for DC planning DVT/GI PPX D/W RN Updated 01/28/21 Continue Supplemental oxygen to keep sats above 92% on [address] angiogram no evidence of pulmonary embolism, discontinue full dose anticoagul ation Continue antibiotics for pneumonia azithromycin and rocephin-- follow cultures Repeat CT chest in 2 months BLE US neg for DVT PT/OT DVT/GI PPX D/W RN PLAN 01/27/21 1. As indicated above, we will treat for pneumonia. 2. CT angiogram when BUN and creatinine have corrected with hydration. 3. Empiric antibiotics. 4. Full dose Lovenox. 5. Continue home meds. 6. Follow up on blood cultures. 7. If fever persists, we will consult Infectious Disease service. MARTIN CALABRESE MD Jan 29, 2021 09:11
--- NOTE | 2021-01-29 10:34 | NUR ---
SS following up with discharge planning. SS reviewed pt chart and discussed with pt RN. Pt is currently requiring oxygen at two liters nasal canula. Pt on IV Azithromycin and IV Rocephin. Pt has no home oxygen. Discharge plan is to home when medically ready. Six minute walk needed prior to discharge. SS will continue to follow for discharge planning.
[2021-01-29] MEDS: cefTRIAXone IV Push 1 GM VIAL. IVP SCH (16:16)
--- NOTE | 2021-01-29 16:49 | PDOC ---
[employer] PROGRESS NOTE Date of Service DOS: DATE: 01/29/21 TIME: 16:47 Chief Complaint Chief Complaint Assessment/Plan sepsis due to multifocal CAP Acute cystitis acute hypoxic respiratory failure Negative for COVID-19 infection acute metabolic encephalopathy, delirium from sepsisimproved nausea, could also be COVID Bipolar disorder Continue empiric IV antibiotics Pending blood and urine cultures Pending chest CTA to rule out PE History of Present Illness History of Present Illness 01/29/2021 No acute events overnight. Patient seen and examined bedside. Patient does have some productive cough with some rhonchi. Patient saturating 96% on 2 L nasal cannula. Upon standing patient will desaturate to the 86 and will need to put on oxygen. Pending 6-minute walk test before discharge. And to be discharged in next 24 to 40 hours. In the meantime patient will need to work with physical therapy to get her strength up before discharge. Patient's chart, labs, images were reviewed and discussed with RN 55-year-old female admit for hypoxia and high fever, UTI noted, abx given, CT chest showed poss unilateraly viral pneumonia, not clearly COVid on xray. she has been confused today and was slurred speech on the CV unit. she had abd pain earlier, this is improve,d - recent diarrnea. pain 4/10 now, 7/10 earlier She has not had a Covid vaccines. Vitals/I&O Vitals/I&O: Vital Signs Date Time Temp Pulse Resp B/P (MAP) Pulse Ox O2 Delivery O2 Flow Rate FiO2 01/29/21 15:49 92 Room Air 01/29/21 14:40 98.4 94 20 104/51 (68) 98.4 01/29/21 11:34 2.0 I & O 01/28/21 01/28/21 01/29/21 15:00 23:00 07:00 Intake Total 0 ml 370 ml 0 ml Output Total 450 ml 200 ml Balance 0 ml -80 ml -200 ml Physical Exam General: Alert, No acute distress, moderate distress, Other (confused, lethargic, does remember me from 2014) Lungs: Crackles Abdomen: Normal bowel sounds, Soft Extremities: No cyanosis, No edema, Normal pulses Skin: Other (old skin injuries look like cutting, she says her dogs, ) Assessment and Plan Assessmemt and Plan Problems Medical Problems: (1) Delirium Status: Acute (2) Hypoxia Status: Acute (3) Person under investigation for COVID-19 Status: Acute (4) Pyelonephritis Status: Acute Comment Review of Relevant I have reviewed the following items sherin (where applicable) has been applied. Medications: Current Medications Medications (Trade) Dose Ordered Sig/Jesus Manuel Route PRN Reason Start Time Stop Time Status Last Admin Dose Admin Enoxaparin Sodium (Lovenox 40mg Syringe) 40 mg Q24H SQ 01/29/21 09:00 01/29/21 08:49 Justifications for Admission Other Justification JOHN MALDONADO MD Jan 29, 2021 16:49
[2021-01-29] MEDS: AZITHROMYCIN 500 MG in IV NORMAL SALINE 250ML 250 ML IV SCH (18:26)
[2021-01-29] MEDS: ARIPiprazole 2 MG TABLET PO SCH (20:07)
[2021-01-29] MEDS: ACETAMINOPHEN 325 MG TABLET. PO PRN (20:07)
[2021-01-29 23:20] LABS: BASO % 0 % (0-3); EOS # 0.1 x10^3/uL (0.0-0.7); EOS % 1 % (0-3); HEMATOCRIT 30.3 % (36.0-47.0); HEMOGLOBIN 10.2 g/dL (12.0-15.5); LYMPH % 12 % (24-48); MEAN CORPUSCULAR HEMOGLOBIN 30 pg (25-35); MEAN CORPUSCULAR HGB CONC 34 g/dL (31-37); MEAN CORPUSCULAR VOLUME 88 fL (79-100); MONO # 0.6 x10^3/uL (0.0-1.1); MONO % 7 % (0-9); NEUT # 6.9 x10^3/uL (1.8-7.7); NEUT % 80 % (31-73); PLATELET COUNT 130 x10^3/uL (140-400); RED BLOOD COUNT 3.45 x10^6/uL (3.50-5.40); RED CELL DISTRIBUTION WIDTH 14.3 % (11.5-14.5); WHITE BLOOD COUNT 8.7 x10^3/uL (4.0-11.0)
[2021-01-29 23:33] LABS: CREATININE 0.9 mg/dL (0.6-1.0); GFR 64.8
[2021-01-29 23:36] LABS: POTASSIUM 2.4 mmol/L (3.5-5.1)
--- NOTE | 2021-01-29 23:55 | NUR ---
With 2300 VS check patient noted to be very drowsy and diaphoretic. Woke only to vigorous shaking. BP noted to be 80s/40s. Patient had temp of 102 at shift change and was given Tylenol. Temp 99.4 with 2300 VS. Called for stat lab draws. Gave 500cc NS bolus. Patient responded to NS bolus very well. BP came up to 118/66. O2Sat 98% with 2L NC. RR 24. Lungs coarse. Patient has been up to [facility] [place] [place] with 800 cc clear yellow urine out after waking. Resting in bed. Watching TV. Call light at hand. Reported episode to DR Wyatt along with critical potassium level of 2.4 noted on stat lab draw. Orders to give KCL 40 PO now and redraw BMP with morning labs.
[2021-01-30 03:24] VITALS: BP 102/53
[2021-01-30] MEDS: LEVOTHYROXINE 75 MCG TABLET PO SCH (05:38)
[2021-01-30] MEDS: PANTOPRAZOLE 40 MG TABLET.DR. PO SCH (05:38)
[2021-01-30 07:00] VITALS: BP 123/66
[2021-01-30] MEDS: ALBUTEROL SULFATE 2.5 MG/3 ML NEBU. NEB SCH ×3 (07:33→15:37)
[2021-01-30] MEDS: BUDESONIDE 0.5 MG/2 ML NEBU. NEB SCH ×2 (07:33→20:34)
[2021-01-30 07:55] LABS: BASO % 1 % (0-3); EOS # 0.1 x10^3/uL (0.0-0.7); EOS % 1 % (0-3); HEMATOCRIT 32.2 % (36.0-47.0); HEMOGLOBIN 10.8 g/dL (12.0-15.5); LYMPH # 0.8 x10^3/uL (1.0-4.8); LYMPH % 9 % (24-48); MEAN CORPUSCULAR HEMOGLOBIN 30 pg (25-35); MEAN CORPUSCULAR HGB CONC 34 g/dL (31-37); MEAN CORPUSCULAR VOLUME 89 fL (79-100); MONO # 0.8 x10^3/uL (0.0-1.1); MONO % 8 % (0-9); NEUT # 7.5 x10^3/uL (1.8-7.7); NEUT % 81 % (31-73); PLATELET COUNT 147 x10^3/uL (140-400); RED BLOOD COUNT 3.64 x10^6/uL (3.50-5.40); RED CELL DISTRIBUTION WIDTH 14.2 % (11.5-14.5); WHITE BLOOD COUNT 9.3 x10^3/uL (4.0-11.0)
[2021-01-30 08:06] LABS: CALCIUM 8.3 mg/dL (8.5-10.1); CREATININE 0.8 mg/dL (0.6-1.0); GFR 74.2; POTASSIUM 3.2 mmol/L (3.5-5.1)
[2021-01-30] MEDS: ZIPRASIDONE 20 MG CAPSULE PO SCH ×2 (08:22→20:04)
[2021-01-30] MEDS: DULoxetine HCL 20 MG CAPSULE.DR PO SCH (08:22)
[2021-01-30] MEDS: GABAPENTIN 300 MG CAPSULE. PO SCH ×3 (08:22→20:04)
[2021-01-30] MEDS: ATORVASTATIN CALCIUM 10 MG TABLET. PO SCH (08:22)
[2021-01-30] MEDS: ENOXAPARIN 40 MG/0.4 ML SYRINGE. SQ SCH (08:22)
[2021-01-30] MEDS ORDERED: POTASSIUM CHLORIDE 20 MEQ TABLET.ER. PO ONE ×2 (09:00)
--- NOTE | 2021-01-30 09:05 | PDOC ---
PULMONARY PROGRESS NOTES DATE: 01/30/21 TIME: 09:05 Subjective Pt. resting on 2 liters NC afebrile hypotension overnight no increased SOA or Cough Vitals Vital Signs Date Time Temp Pulse Resp B/P (MAP) Pulse Ox O2 Delivery O2 Flow Rate FiO2 01/30/21 07:34 95 Nasal Cannula 2.0 01/30/21 07:00 98.5 95 24 123/66 (85) 98.5 ROS: No Nausea, No Chest Pain, No Abdominal Pain, No Increase Cough General: Alert HEENT: Other (poor dentation ) Lungs: Crackles Cardiovascular: S1 Neuro Exam: Alert Extremities: No Edema Labs Laboratory Tests Test 01/29/21 23:07 01/29/21 23:10 01/30/21 07:10 Glucose (Fingerstick) 152 mg/dL (70-99) White Blood Count 8.7 x10^3/uL (4.0-11.0) 9.3 x10^3/uL (4.0-11.0) Red Blood Count 3.45 x10^6/uL (3.50-5.40) 3.64 x10^6/uL (3.50-5.40) Hemoglobin 10.2 g/dL (12.0-15.5) 10.8 g/dL (12.0-15.5) Hematocrit 30.3 % (36.0-47.0) 32.2 % (36.0-47.0) Mean Corpuscular Volume 88 fL (79-100) 89 fL (79-100) Mean Corpuscular Hemoglobin 30 pg (25-35) 30 pg (25-35) Mean Corpuscular Hemoglobin Concent 34 g/dL (31-37) 34 g/dL (31-37) Red Cell Distribution Width 14.3 % (11.5-14.5) 14.2 % (11.5-14.5) Platelet Count 130 x10^3/uL (140-400) 147 x10^3/uL (140-400) Neutrophils (%) (Auto) 80 % (31-73) 81 % (31-73) Lymphocytes (%) (Auto) 12 % (24-48) 9 % (24-48) Monocytes (%) (Auto) 7 % (0-9) 8 % (0-9) Eosinophils (%) (Auto) 1 % (0-3) 1 % (0-3) Basophils (%) (Auto) 0 % (0-3) 1 % (0-3) Neutrophils # (Auto) 6.9 x10^3/uL (1.8-7.7) 7.5 x10^3/uL (1.8-7.7) Lymphocytes # (Auto) 1.0 x10^3/uL (1.0-4.8) 0.8 x10^3/uL (1.0-4.8) Monocytes # (Auto) 0.6 x10^3/uL (0.0-1.1) 0.8 x10^3/uL (0.0-1.1) Eosinophils # (Auto) 0.1 x10^3/uL (0.0-0.7) 0.1 x10^3/uL (0.0-0.7) Basophils # (Auto) 0.0 x10^3/uL (0.0-0.2) 0.0 x10^3/uL (0.0-0.2) Sodium Level 145 mmol/L (136-145) 145 mmol/L (136-145) Potassium Level 2.4 mmol/L (3.5-5.1) 3.2 mmol/L (3.5-5.1) Chloride Level 108 mmol/L (98-107) 106 mmol/L (98-107) Carbon Dioxide Level 32 mmol/L (21-32) 29 mmol/L (21-32) Anion Gap 5 (6-14) 10 (6-14) Blood Urea Nitrogen 6 mg/dL (7-20) 7 mg/dL (7-20) Creatinine 0.9 mg/dL (0.6-1.0) 0.8 mg/dL (0.6-1.0) Estimated GFR (Cockcroft-Gault) 64.8 74.2 Glucose Level 159 mg/dL (70-99) 91 mg/dL (70-99) Calcium Level 8.0 mg/dL (8.5-10.1) 8.3 mg/dL (8.5-10.1) Troponin I Quantitative < 0.017 ng/mL (0.000-0.055) Laboratory Tests Test 01/29/21 23:07 6/15/21 23:10 01/30/21 07:10 Glucose (Fingerstick) 152 mg/dL (70-99) White Blood Count 8.7 x10^3/uL (4.0-11.0) 9.3 x10^3/uL (4.0-11.0) Red Blood Count 3.45 x10^6/uL (3.50-5.40) 3.64 x10^6/uL (3.50-5.40) Hemoglobin 10.2 g/dL (12.0-15.5) 10.8 g/dL (12.0-15.5) Hematocrit 30.3 % (36.0-47.0) 32.2 % (36.0-47.0) Mean Corpuscular Volume 88 fL (79-100) 89 fL (79-100) Mean Corpuscular Hemoglobin 30 pg (25-35) 30 pg (25-35) Mean Corpuscular Hemoglobin Concent 34 g/dL (31-37) 34 g/dL (31-37) Red Cell Distribution Width 14.3 % (11.5-14.5) 14.2 % (11.5-14.5) Platelet Count 130 x10^3/uL (140-400) 147 x10^3/uL (140-400) Neutrophils (%) (Auto) 80 % (31-73) 81 % (31-73) Lymphocytes (%) (Auto) 12 % (24-48) 9 % (24-48) Monocytes (%) (Auto) 7 % (0-9) 8 % (0-9) Eosinophils (%) (Auto) 1 % (0-3) 1 % (0-3) Basophils (%) (Auto) 0 % (0-3) 1 % (0-3) Neutrophils # (Auto) 6.9 x10^3/uL (1.8-7.7) 7.5 x10^3/uL (1.8-7.7) Lymphocytes # (Auto) 1.0 x10^3/uL (1.0-4.8) 0.8 x10^3/uL (1.0-4.8) Monocytes # (Auto) 0.6 x10^3/uL (0.0-1.1) 0.8 x10^3/uL (0.0-1.1) Eosinophils # (Auto) 0.1 x10^3/uL (0.0-0.7) 0.1 x10^3/uL (0.0-0.7) Basophils # (Auto) 0.0 x10^3/uL (0.0-0.2) 0.0 x10^3/uL (0.0-0.2) Sodium Level 145 mmol/L (136-145) 145 mmol/L (136-145) Potassium Level 2.4 mmol/L (3.5-5.1) 3.2 mmol/L (3.5-5.1) Chloride Level 108 mmol/L (98-107) 106 mmol/L (98-107) Carbon Dioxide Level 32 mmol/L (21-32) 29 mmol/L (21-32) Anion Gap 5 (6-14) 10 (6-14) Blood Urea Nitrogen 6 mg/dL (7-20) 7 mg/dL (7-20) Creatinine 0.9 mg/dL (0.6-1.0) 0.8 mg/dL (0.6-1.0) Estimated GFR (Cockcroft-Gault) 64.8 74.2 Glucose Level 159 mg/dL (70-99) 91 mg/dL (70-99) Calcium Level 8.0 mg/dL (8.5-10.1) 8.3 mg/dL (8.5-10.1) Troponin I Quantitative < 0.017 ng/mL (0.000-0.055) Medications Active Scripts Medications Dose Route/Sig Max Daily Dose Days Date Category Proair Hfa Inhaler (Albuterol Sulfate) 8.5 Gm Hfa.aer.ad 2 Puff IH PRN Q4HRS PRN 21 01/27/21 Reported Advair 500-50 Diskus (Fluticasone/Salmeterol) 1 Each Disk.w.dev 1 Puff IH BID 01/27/21 Reported Geodon (Ziprasidone Hcl) 40 Mg Capsule 80 Mg PO BID 01/27/21 Reported Levothyroxine Sodium 75 Mcg Tablet 1 Tab PO DAILY05 01/27/21 Reported Atorvastatin Calcium 10 Mg Tablet 1 Tab PO DAILY 01/27/21 Reported Diazepam 10 Mg Tablet 10 Mg PO BID 01/27/21 Reported Pantoprazole Sodium (Pantoprazole Sodium) 40 Mg Tablet.dr 40 Mg PO DAILYAC 01/27/21 Reported Abilify (Aripiprazole) 2 Mg Tablet 1 Tab PO DAILY 30 01/27/21 Reported Gabapentin (Gabapentin) 300 Mg Capsule 300 Mg PO TID 01/27/21 Reported Hydroxyzine Hcl 50 Mg Tablet 50 Mg PO PRN QID PRN 03/26/15 Reported Ziprasidone Hcl 80 Mg Capsule 100 Mg PO BID 03/26/15 Reported Doxepin Hcl 100 Mg Capsule 100 Mg PO QHS 03/26/15 Reported Cymbalta (Duloxetine Hcl) 60 Mg Capsule.dr 90 Mg PO DAILY 03/25/15 Reported Comments CXR 01/30-IMPRESSION: Increased right-sided opacities. Given the rapid appearance since the prior chest radiograph, this favors pneumonia. Radiographic follow-up would be useful to confirm clearing. CT chest IMPRESSION: 1. No acute pulmonary embolism. 2. Large dense right upper lobe consolidation and milder opacities in the right lower lobe and left lung. Findings are consistent with multifocal pneumonia. 3. Moderate centrilobular emphysema. Small right pleural effusion. 4. Mildly enlarged mediastinal and hilar lymph nodes, likely reactive. Impression . IMPRESSION: 1. Acute hypoxemic respiratory failure.--improving 2. Abnormal x-ray, compatible with pneumonia, suspect gram negative, possible gram-positive. 3. Fever secondary to above.--resolved 4. Leukocytosis--improved 5. Protein malnutrition. 6. Abnormal perfusion scan. 7. Clinical suspicion for pulmonary embolism is low. 8. Chronic obstructive pulmonary disease. 9. Tobacco dependent. 10. Anxiety and depression. CT CHEST IMPRESSION: 1. No acute pulmonary embolism. 2. Large dense right upper lobe consolidation and milder opacities in the right lower lobe and left lung. Findings are consistent with multifocal pneumonia. 3. Moderate centrilobular emphysema. Small right pleural effusion. 4. Mildly enlarged mediastinal and hilar lymph nodes, likely reactive. Electronically signed by: Usha Sarmiento MD (01/28/2021 10:12 AM) [id number] Bilateral venous Doppler results Impression: No evidence for deep vein thrombosis of bilateral lower extremities from the level of the calf veins to the groins. Plan . Updated 01/30/21 Continue Supplemental oxygen to keep sats above 92% on 2 liters NC 6 min walk prior to discharge NEBS CXR reviewed, slightly worse today CT angiogram no evidence of pulmonary embolism, discontinue full dose an ticoagulation Continue antibiotics for pneumonia-- follow cultures Repeat CT chest in 2 months BLE US neg for DVT PT/OT --aggressive therapy Social work for DC planning DVT/GI PPX:lovenox/Protonix D/W RN Updated 01/29/21 Continue Supplemental oxygen to keep sats above 92% on 3 liters NC 6 min walk prior to discharge NEBS CT angiogram no evidence of pulmonary embolism, discontinue full dose anticoagulation Continue antibiotics for pneumonia azithromycin and rocephin-- follow cultures Repeat CT chest in 2 months BLE US neg for DVT PT/OT --aggressive therapy Social work for DC planning DVT/GI PPX D/W RN Updated 01/28/21 Continue Supplemental oxygen to keep sats above 92% on [address] angiogram no evidence of pulmonary embolism, discontinue full dose anticoagulation Continue antibiotics for pneumonia azithromycin and rocephin-- follow cultures Repeat CT chest in 2 months BLE US neg for DVT PT/OT DVT/GI PPX D/W MARTIN JEFFERY MD Jan 30, 2021 09:05
--- NOTE | 2021-01-30 10:36 | RAD ---
PROCEDURE: AP portable chest. REASON FOR STUDY: Shortness of breath. COMPARISON: 01/26/2021. FINDINGS: There is a new area of opacity on the right, probably in the upper lobe abutting the minor fissure. There is questionable nodularity toward the right lung base. No pleural fluid is seen. The l eft lung appears clear. Heart size is normal. IMPRESSION: Increased right-sided opacities. Given the rapid appearance since the prior chest radiogr aph, this favors pneumonia. Radiographic follow-up would be useful to confirm clearing. Electronically signed by: Chapo Mandel Jr., MD (01/30/2021 10:34 AM) [id number]
--- NOTE | 2021-01-30 10:41 | NUR ---
SS following up with discharge planning. SS reviewed pt chart and discussed with pt RN. Pt is currently requiring oxygen at two liters nasal canula. Pt had six minute walk yesterday but did not do well yesterday night. Physician requesting new six minute walk prior to discharge. COVID19 negative. Pt on IV Azithromycin and IV Rocephin. Pt getting IV Potassium today. PT/OT ordered. SS will continue to follow for discharge planning.
[2021-01-30 11:00] VITALS: BP 131/71
--- NOTE | 2021-01-30 11:51 | PDOC ---
[employer] PROGRESS NOTE Date of Service DOS: DATE: 01/30/21 TIME: 11:50 Chief Complaint Chief Complaint Assessment/Plan sepsis due to multifocal CAP Acute cystitis acute hypoxic respiratory failure Negative for COVID-19 infection acute metabolic encephalopathy, delirium from sepsisimproved nausea, could also be COVID Bipolar disorder Continue empiric IV antibiotics Pending blood and urine cultures Pending chest CTA to rule out PE History of Present Illness History of Present Illness 01/30/2021 Patient had hypotensive episode last night with some weakness. 500 NS bolus was given and labs were drawn that showed a severe hypokalemia. Replacement potassium was given last night and also given this morning IV and p.o. Patient saturating 96% on 2 L nasal cannula. No dyspneic episodes. Chest x-ray showed that there was increasing consolidation of the right upper lobe pneumonia. Start with RT physiotherapy to help with sputum mobilization and alveolar recruitment. Incentive spirometry ordered. Patient's chart, labs, images were reviewed and discussed with RN 01/29/2021 No acute events overnight. Patient seen and examined bedside. Patient does have some productive cough with some rhonchi. Patient saturating 96% on 2 L nasal cannula. Upon standing patient will desaturate to the 86 and will need to put on oxygen. Pending 6-minute walk test before discharge. And to be discharged in next 24 to 40 hours. In the meantime patient will need to work with physical therapy to get her strength up before discharge. Patient's chart, labs, images were reviewed and discussed with RN 55-year-old female admit for hypoxia and high fever, UTI noted, abx given, CT chest showed poss unilateraly viral pneumonia, not clearly COVid on xray. she has been confused today and was slurred speech on the CV unit. she had abd pain earlier, this is improve,d - recent diarrnea. pain 4/10 now, 7/10 earlier She has not had a Covid vaccines. Vitals/I&O Vitals/I&O: Vital Signs Date Time Temp Pulse Resp B/P (MAP) Pulse Ox O2 Delivery O2 Flow Rate FiO2 01/30/21 11:03 95 Nasal Cannula 2.0 01/30/21 11:00 98.3 96 24 131/71 (91) 98.3 I & O 01/29/21 01/29/21 01/30/21 15:00 23:00 07:00 Intake Total 200 ml 610 ml 1000 ml Output Total 300 ml 1500 ml Balance -100 ml 610 ml -500 ml Physical Exam General: Alert, No acute distress, moderate distress, Other (confused, lethargic, does remember me from 2014) Lungs: Crackles Abdomen: Normal bowel sounds, Soft Extremities: No cyanosis, No edema, Normal pulses Skin: Other (old skin injuries look like cutting, she says her dogs, ) Labs Labs: Laboratory Tests Test 01/29/21 23:07 01/29/21 23:10 01/30/21 07:10 Glucose (Fingerstick) 152 mg/dL (70-99) White Blood Count 8.7 x10^3/uL (4.0-11.0) 9.3 x10^3/uL (4.0-11.0) Red Blood Count 3.45 x10^6/uL (3.50-5.40) 3.64 x10^6/uL (3.50-5.40) Hemoglobin 10.2 g/dL (12.0-15.5) 10.8 g/dL (12.0-15.5) Hematocrit 30.3 % (36.0-47.0) 32.2 % (36.0-47.0) Mean Corpuscular Volume 88 fL (79-100) 89 fL (79-100) Mean Corpuscular Hemoglobin 30 pg (25-35) 30 pg (25-35) Mean Corpuscular Hemoglobin Concent 34 g/dL (31-37) 34 g/dL (31-37) Red Cell Distribution Width 14.3 % (11.5-14.5) 14.2 % (11.5-14.5) Platelet Count 130 x10^3/uL (140-400) 147 x10^3/uL (140-400) Neutrophils (%) (Auto) 80 % (31-73) 81 % (31-73) Lymphocytes (%) (Auto) 12 % (24-48) 9 % (24-48) Monocytes (%) (Auto) 7 % (0-9) 8 % (0-9) Eosinophils (%) (Auto) 1 % (0-3) 1 % (0-3) Basophils (%) (Auto) 0 % (0-3) 1 % (0-3) Neutrophils # (Auto) 6.9 x10^3/uL (1.8-7.7) 7.5 x10^3/uL (1.8-7.7) Lymphocytes # (Auto) 1.0 x10^3/uL (1.0-4.8) 0.8 x10^3/uL (1.0-4.8) Monocytes # (Auto) 0.6 x10^3/uL (0.0-1.1) 0.8 x10^3/uL (0.0-1.1) Eosinophils # (Auto) 0.1 x10^3/uL (0.0-0.7) 0.1 x10^3/uL (0.0-0.7) Basophils # (Auto) 0.0 x10^3/uL (0.0-0.2) 0.0 x10^3/uL (0.0-0.2) Sodium Level 145 mmol/L (136-145) 145 mmol/L (136-145) Potassium Level 2.4 mmol/L (3.5-5.1) 3.2 mmol/L (3.5-5.1) Chloride Level 108 mmol/L (98-107) 106 mmol/L (98-107) Carbon Dioxide Level 32 mmol/L (21-32) 29 mmol/L (21-32) Anion Gap 5 (6-14) 10 (6-14) Blood Urea Nitrogen 6 mg/dL (7-20) 7 mg/dL (7-20) Creatinine 0.9 mg/dL (0.6-1.0) 0.8 mg/dL (0.6-1.0) Estimated GFR (Cockcroft-Gault) 64.8 74.2 Glucose Level 159 mg/dL (70-99) 91 mg/dL (70-99) Calcium Level 8.0 mg/dL (8.5-10.1) 8.3 mg/dL (8.5-10.1) Troponin I Quantitative < 0.017 ng/mL (0.000-0.055) Assessment and Plan Assessmemt and Plan Problems Medical Problems: (1) Delirium Status: Acute (2) Hypoxia Status: Acute (3) Person under investigation for COVID-19 Status: Acute (4) Pyelonephritis Status: Acute Comment Review of Relevant I have reviewed the following items sherin (where applicable) has been applied. Medications: Current Medications Medications (Trade) Dose Ordered Sig/Jesus Manuel Route PRN Reason Start Time Stop Time Status Last Admin Dose Admin Potassium Chloride (Klor-Con) 40 meq 1X ONCE PO 01/30/21 00:00 01/30/21 00:01 DC 01/30/21 00:09 Justifications for Admission Other Justification JOHN MALDONADO MD Jan 30, 2021 11:51
[2021-01-30] MEDS: POTASSIUM CHLORIDE 20MEQ 100 ML IV SCH ×2 (11:55→14:30)
[2021-01-30] MEDS ORDERED: guaiFENesin ORAL 200 MG/10 ML LIQUID. PO PRN (12:00)
--- NOTE | 2021-01-30 12:01 | NUR ---
PER DR MALDONADO - PT NEEDS IS. PT INSTRUCTED ON PROPER USE OF IS. PT DEMONSTRATED PROPER USE. PT WILL USE IS HOURLY.
[2021-01-30 15:00] VITALS: BP 105/59
[2021-01-30] MEDS: cefTRIAXone IV Push 1 GM VIAL. IVP SCH (16:46)
[2021-01-30 18:59] VITALS: BP 142/63
[2021-01-30] MEDS: AZITHROMYCIN 500 MG in IV NORMAL SALINE 250ML 250 ML IV SCH (19:00)
[2021-01-30] MEDS: ARIPiprazole 2 MG TABLET PO SCH (20:04)
[2021-01-30] MEDS: IPRATRPIUM/ALBUTEROL 0.5/2.5MG 3 ML NEBU. NEB SCH (20:34)
[2021-01-30 23:00] VITALS: BP 100/52
[2021-01-30] MEDS: ACETAMINOPHEN 325 MG TABLET. PO PRN (23:11)
[2021-01-31 02:05] VITALS: BP 117/62
[2021-01-31] MEDS: LEVOTHYROXINE 75 MCG TABLET PO SCH (04:58)
[2021-01-31 07:00] VITALS: BP 119/61
[2021-01-31] MEDS: IPRATRPIUM/ALBUTEROL 0.5/2.5MG 3 ML NEBU. NEB SCH ×2 (07:22→11:42)
[2021-01-31] MEDS: BUDESONIDE 0.5 MG/2 ML NEBU. NEB SCH (07:22)
[2021-01-31] MEDS: ZIPRASIDONE 20 MG CAPSULE PO SCH (08:42)
[2021-01-31] MEDS: GABAPENTIN 300 MG CAPSULE. PO SCH ×2 (08:43→14:32)
[2021-01-31] MEDS: DULoxetine HCL 20 MG CAPSULE.DR PO SCH (08:43)
[2021-01-31] MEDS: ENOXAPARIN 40 MG/0.4 ML SYRINGE. SQ SCH (08:43)
[2021-01-31] MEDS: ATORVASTATIN CALCIUM 10 MG TABLET. PO SCH (08:43)
[2021-01-31] MEDS: PANTOPRAZOLE 40 MG TABLET.DR. PO SCH (08:44)
[2021-01-31] MEDS ORDERED: LACTOBACILLUS RHAMNOSUS GG 1 CAPSULE. PO SCH (09:00)
--- NOTE | 2021-01-31 10:13 | PDOC ---
PULMONARY PROGRESS NOTES DATE: 01/31/21 TIME: 10:13 Subjective Pt. resting on 2 liters NC no increased SOA or Cough no overnight events Vitals Vital Signs Date Time Temp Pulse Resp B/P (MAP) Pulse Ox O2 Delivery O2 Flow Rate FiO2 01/31/21 07:22 92 Nasal Cannula 2.0 01/31/21 07:00 98.2 96 21 119/61 (80) 98.2 ROS: No Nausea, No Chest Pain, No Abdominal Pain, No Increase Cough General: Alert HEENT: Other (poor dentation ) Lungs: Crackles Cardiovascular: S1 Neuro Exam: Alert Extremities: No Edema Labs Laboratory Tests Test 01/29/21 23:07 01/29/21 23:10 01/30/21 07:10 Glucose (Fingerstick) 152 mg/dL (70-99) White Blood Count 8.7 x10^3/uL (4.0-11.0) 9.3 x10^3/uL (4.0-11.0) Red Blood Count 3.45 x10^6/uL (3.50-5.40) 3.64 x10^6/uL (3.50-5.40) Hemoglobin 10.2 g/dL (12.0-15.5) 10.8 g/dL (12.0-15.5) Hematocrit 30.3 % (36.0-47.0) 32.2 % (36.0-47.0) Mean Corpuscular Volume 88 fL (79-100) 89 fL (79-100) Mean Corpuscular Hemoglobin 30 pg (25-35) 30 pg (25-35) Mean Corpuscular Hemoglobin Concent 34 g/dL (31-37) 34 g/dL (31-37) Red Cell Distribution Width 14.3 % (11.5-14.5) 14.2 % (11.5-14.5) Platelet Count 130 x10^3/uL (140-400) 147 x10^3/uL (140-400) Neutrophils (%) (Auto) 80 % (31-73) 81 % (31-73) Lymphocytes (%) (Auto) 12 % (24-48) 9 % (24-48) Monocytes (%) (Auto) 7 % (0-9) 8 % (0-9) Eosinophils (%) (Auto) 1 % (0-3) 1 % (0-3) Basophils (%) (Auto) 0 % (0-3) 1 % (0-3) Neutrophils # (Auto) 6.9 x10^3/uL (1.8-7.7) 7.5 x10^3/uL (1.8-7.7) Lymphocytes # (Auto) 1.0 x10^3/uL (1.0-4.8) 0.8 x10^3/uL (1.0-4.8) Monocytes # (Auto) 0.6 x10^3/uL (0.0-1.1) 0.8 x10^3/uL (0.0-1.1) Eosinophils # (Auto) 0.1 x10^3/uL (0.0-0.7) 0.1 x10^3/uL (0.0-0.7) Basophils # (Auto) 0.0 x10^3/uL (0.0-0.2) 0.0 x10^3/uL (0.0-0.2) Sodium Level 145 mmol/L (136-145) 145 mmol/L (136-145) Potassium Level 2.4 mmol/L (3.5-5.1) 3.2 mmol/L (3.5-5.1) Chloride Level 108 mmol/L (98-107) 106 mmol/L (98-107) Carbon Dioxide Level 32 mmol/L (21-32) 29 mmol/L (21-32) Anion Gap 5 (6-14) 10 (6-14) Blood Urea Nitrogen 6 mg/dL (7-20) 7 mg/dL (7-20) Creatinine 0.9 mg/dL (0.6-1.0) 0.8 mg/dL (0.6-1.0) Estimated GFR (Cockcroft-Gault) 64.8 74.2 Glucose Level 159 mg/dL (70-99) 91 mg/dL (70-99) Calcium Level 8.0 mg/dL (8.5-10.1) 8.3 mg/dL (8.5-10.1) Troponin I Quantitative < 0.017 ng/mL (0.000-0.055) Medications Active Scripts Medications Dose Route/Sig Max Daily Dose Days Date Category Proair Hfa Inhaler (Albuterol Sulfate) 8.5 Gm Hfa.aer.ad 2 Puff IH PRN Q4HRS PRN 21 01/27/21 Reported Advair 500-50 Diskus (Fluticasone/Salmeterol) 1 Each Disk.w.dev 1 Puff IH BID 01/27/21 Reported Geodon (Ziprasidone Hcl) 40 Mg Capsule 80 Mg PO BID 01/27/21 Reported Levothyroxine Sodium 75 Mcg Tablet 1 Tab PO DAILY05 01/27/21 Reported Atorvastatin Calcium 10 Mg Tablet 1 Tab PO DAILY 01/27/21 Reported Diazepam 10 Mg Tablet 10 Mg PO BID 01/27/21 Reported Pantoprazole Sodium (Pantoprazole Sodium) 40 Mg Tablet.dr 40 Mg PO DAILYAC 01/27/21 Reported Abilify (Aripiprazole) 2 Mg Tablet 1 Tab PO DAILY 30 01/27/21 Reported Gabapentin (Gabapentin) 300 Mg Capsule 300 Mg PO TID 01/27/21 Reported Hydroxyzine Hcl 50 Mg Tablet 50 Mg PO PRN QID PRN 03/26/15 Reported Ziprasidone Hcl 80 Mg Capsule 100 Mg PO BID 03/26/15 Reported Doxepin Hcl 100 Mg Capsule 100 Mg PO QHS 03/26/15 Reported Cymbalta (Duloxetine Hcl) 60 Mg Capsule.dr 90 Mg PO DAILY 03/25/15 Reported Comments CXR 01/30-IMPRESSION: Increased right-sided opacities. Given the rapid appearance since the prior chest radiograph, this favors pneumonia. Radiographic follow-up would be useful to confirm clearing. CT chest IMPRESSION: 1. No acute pulmonary embolism. 2. Large dense right upper lobe consolidation and milder opacities in the right lower lobe and left lung. Findings are consistent with multifocal pneumonia. 3. Moderate centrilobular emphysema. Small right pleural effusion. 4. Mildly enlarged mediastinal and hilar lymph nodes, likely reactive. Impression . IMPRESSION: 1. Acute hypoxemic respiratory failure.--improving 2. Abnormal x-ray, compatible with pneumonia, suspect gram negative, possible gram-positive. 3. Fever secondary to above.--resolved 4. Leukocytosis--resolved 5. Protein malnutrition. 6. Abnormal perfusion scan. 7. Clinical suspicion for pulmonary embolism is low. 8. Chronic obstructive pulmonary disease. 9. Tobacco dependent. 10. Anxiety and depression. CT CHEST IMPRESSION: 1. No acute pulmonary embolism. 2. Large dense right upper lobe consolidation and milder opacities in the right lower lobe and left lung. Findings are consistent with multifocal pneumonia. 3. Moderate centrilobular emphysema. Small right pleural effusion. 4. Mildly enlarged mediastinal and hilar lymph nodes, likely reactive. Electronically signed by: Usha Sarmiento MD (01/28/2021 10:12 AM) [id number] Bilateral venous Doppler results Impression: No evidence for deep vein thrombosis of bilateral lower extremities from the level of the calf veins to the groins. Plan . Updated 01/31/21 Continue Supplemental oxygen to keep sats above 92% on 2 liters NC 6 min walk prior to discharge NEBS CXR reviewed, slightly worse today CT angiogram no evidence of pulmonary embolism Continue antibiotics for pneumonia, RX for augmentin provided Repeat CT chest in 2 months PT/OT Follow up in Office in February, pt. given follow up appointment DVT/GI PPX:lovenox/Protonix D/W RN Updated 01/30/21 Continue Supplemental oxygen to keep sats above 92% on 2 liters NC 6 min walk prior to discharge NEBS CXR reviewed, slightly worse today CT angiogram no evidence of pulmonary embolism, discontinue full dose anticoagulation Continue antibiotics for pneumonia-- follow cultures Repeat CT chest in 2 months BLE US neg for DVT PT/OT --aggressive therapy Social work for DC planning DVT/GI PPX:lovenox/Protonix D/W RN Updated 01/29/21 Continue Supplemental oxygen to keep sats above 92% on 3 liters NC 6 min walk prior to discharge NEBS CT angiogram no evidence of pulmonary embolism, discontinue full dose anticoagulation Continue antibiotics for pneumonia azithromycin and rocephin-- follow cultures Repeat CT chest in 2 months BLE US neg for DVT PT/OT --aggressive therapy Social work for DC planning DVT/GI PPX D/W RN MARTIN CALABRESE MD Jan 31, 2021 10:13
[2021-01-31 11:00] VITALS: BP 115/61
[2021-01-31] MEDS ORDERED: AMOX1TAB61 PO (11:01)
--- NOTE | 2021-01-31 11:06 | DISCH ---
DISCHARGE INSTRUCTIONS Condition on Discharge Condition on Discharge: Stable Activity After Discharge Activity Instructions for Disc: Activity as tolerated Lifting Instructions after Dis: Do not lift >10 pounds Exercise Instruction after Dis: Walk 15 min, 3 x per day Driving Instructions after Dis: Do not drive today Diet after Discharge Diet after Discharge: Cardiac Contacting the DRJanell after DC Call your doctor for: If your condition worsens Follow-Up Follow up with: PCP within 2 weeks of discharge Follow Up With: Pulmonology as needed JOHN MALDONADO MD Jan 31, 2021 11:06
[2021-01-31 12:27] LABS: HEMATOCRIT 31.8 % (36.0-47.0); HEMOGLOBIN 10.9 g/dL (12.0-15.5); RED BLOOD COUNT 3.58 x10^6/uL (3.50-5.40); RED CELL DISTRIBUTION WIDTH 14.5 % (11.5-14.5); WHITE BLOOD COUNT 10.2 x10^3/uL (4.0-11.0)
[2021-01-31 12:44] LABS: CALCIUM 8.7 mg/dL (8.5-10.1); CREATININE 0.9 mg/dL (0.6-1.0); GFR 64.8; POTASSIUM 3.6 mmol/L (3.5-5.1)
--- NOTE | 2021-01-31 12:55 | RAD ---
XR CHEST 1V History: Reason: pneumonia / Spl. Instructions: / History: Comparison: January 30, 2021 Findings: Right upper lobe consolidations, unchanged. Patchy bibasilar opacities, unchanged. No pleural effusio n. No pneumothorax. Unchanged heart size. Chronic left-sided rib fracture. Impression: 1. Stable appearance of the chest compared to prior. Electronically signed by: Marcus Camargo DO (01/31/2021 12:53 PM) [id number]
--- NOTE | 2021-01-31 15:37 | NUR ---
SS following up with discharge planning. SS reviewed pt chart and discussed with pt RN. Pt is currently on room air. Six minute walk completed and pt does not require home oxygen. COVID19 negative. Discharge order on the chart for home with self care.
--- NOTE | 2021-01-31 15:55 | NUR ---
Discharge Note: [facility] Discharge instructions and discharge home medications reviewed with Patient and a copy given. All questions have been answered and understanding verbalized. Patient given information on follow up appointments. All belongings taken with patient upon discharge. The following instructions and handouts were given: Pneumonia, UTI, Sepsis, Augmentin, and Smoking Cessation Discontinued lines and drains: Peripheral IV intact. Patient discharged to Home or Self Care with Family Member via Wheelchair
--- NOTE | 2021-02-04 22:11 | PDOC3 ---
[facility]-Discharge Summary Date of Admission: Date of Admission: Jan 26, 2021 Date of Discharge: Date of Discharge: Jan 31, 2021 Discharge Diagnosis: Discharge Diagnosis: sepsis due to multifocal CAP Acute cystitis acute hypoxic respiratory failure Negative for COVID-19 infection acute metabolic encephalopathy, delirium from sepsisimproved nausea, could also be COVID Bipolar disorder Hospital Course: Hospital Course: By day of discharge, pt was clinically stable and ready for discharge. Rest of hospital course was uneventful. 01/30/2021 Patient had hypotensive episode last night with some weakness. 500 NS bolus was given and labs were drawn that showed a severe hypokalemia. Replacement potassium was given last night and also given this morning IV and p.o. Patient saturating 96% on 2 L nasal cannula. No dyspneic episodes. Chest x-ray showed that there was increasing consolidation of the right upper lobe pneumonia. Start with RT physiotherapy to help with sputum mobilization and alveolar recruitment. Incentive spirometry ordered. Patient's chart, labs, images were reviewed and discussed with RN 01/29/2021 No acute events overnight. Patient seen and examined bedside. Patient does have some productive cough with some rhonchi. Patient saturating 96% on 2 L nasal cannula. Upon standing patient will desaturate to the 86 and will need to put on oxygen. Pending 6-minute walk test before discharge. And to be discharged in next 24 to 40 hours. In the meantime patient will need to work with physical therapy to get her strength up before discharge. Patient's chart, labs, images were reviewed and discussed with RN 55-year-old female admit for hypoxia and high fever, UTI noted, abx given, CT chest showed poss unilateraly viral pneumonia, not clearly COVid on xray. she has been confused today and was slurred speech on the CV unit. she had abd pain earlier, this is improve,d - recent diarrnea. pain 4/10 now, 7/10 earlier She has not had a Covid vaccines. Disposition: Disposition/Orders: D/C to Home Activity: Activity: Resume previous activity Diet: Diet: Cardiac Medications: Home Meds Active Scripts Amoxicillin/Potassium Clav (AUGMENTIN 875-125 TABLET) 1 Each Tablet, 1 TAB PO BID for pnuemonia for 7 Days, #14 TAB 0 Refills Prov:JOHN MALDONADO MD 01/31/21 Reported Medications Albuterol Sulfate (PROAIR HFA INHALER) 8.5 Gm Hfa.aer.ad, 2 PUFF IH PRN Q4HRS PRN for wheezing for 21 Days, #1 INHALER 0 Refills 01/27/21 Fluticasone/Salmeterol (ADVAIR 500-50 DISKUS) 1 Each Disk.w.dev, 1 PUFF IH BID for breathing, #1 INHALER 5 Refills 01/27/21 Ziprasidone Hcl (GEODON) 40 Mg Capsule, 80 MG PO BID for bipolar, CAP 01/27/21 Levothyroxine Sodium (LEVOTHYROXINE SODIUM) 75 Mcg Tablet, 1 TAB PO DAILY05 for thyroid, #30 TAB 5 Refills 01/27/21 Atorvastatin Calcium (ATORVASTATIN CALCIUM) 10 Mg Tablet, 1 TAB PO DAILY for CHOLESTEROL, #30 TAB 5 Refills 01/27/21 Pantoprazole Sodium (PANTOPRAZOLE SODIUM ) 40 Mg Tablet.dr, 40 MG PO DAILYAC for GERD, TAB 01/27/21 Aripiprazole (ABILIFY) 2 Mg Tablet, 1 TAB PO DAILY for BIPOLAR for 30 Days, #30 TAB 0 Refills 01/27/21 Gabapentin (GABAPENTIN ) 300 Mg Capsule, 300 MG PO TID for NEUROGENIC PAIN, CAP 01/27/21 Hydroxyzine Hcl (HYDROXYZINE HCL) 50 Mg Tablet, 50 MG PO PRN QID PRN for ANXIETY, TAB 03/26/15 Ziprasidone Hcl (ZIPRASIDONE HCL) 80 Mg Capsule, 100 MG PO BID 03/26/15 Duloxetine Hcl (CYMBALTA) 60 Mg Capsule.dr, 90 MG PO DAILY, CAP 03/25/15 Discontinued Reported Medications Diazepam (DIAZEPAM) 10 Mg Tablet, 10 MG PO BID for ANXIETY, TAB 01/27/21 Doxepin Hcl (DOXEPIN HCL) 100 Mg Capsule, 100 MG PO QHS 03/26/15 Scheduled Amoxicillin/Potassium Clav (Augmentin 875-125 Tablet), 1 TAB PO BID Aripiprazole (Abilify), 1 TAB PO DAILY, (Reported) Atorvastatin Calcium (Atorvastatin Calcium), 1 TAB PO DAILY, (Reported) Duloxetine Hcl (Cymbalta), 90 MG PO DAILY, (Reported) Fluticasone/Salmeterol (Advair 500-50 Diskus), 1 PUFF IH BID, (Reported) Gabapentin (Gabapentin ), 300 MG PO TID, (Reported) Levothyroxine Sodium (Levothyroxine Sodium), 1 TAB PO DAILY05, (Reported) Pantoprazole Sodium (Pantoprazole Sodium ), 40 MG PO DAILYAC, (Reported) Ziprasidone Hcl (Ziprasidone Hcl), 100 MG PO BID, (Reported) Ziprasidone Hcl (Geodon), 80 MG PO BID, (Reported) Scheduled PRN Albuterol Sulfate (Proair Hfa Inhaler), 2 PUFF IH PRN Q4HRS PRN for wheezing, (Reported) Hydroxyzine Hcl (Hydroxyzine Hcl), 50 MG PO PRN QID PRN for ANXIETY, (Reported) Discontinued Medications Diazepam (Diazepam), 10 MG PO BID, (Reported) Doxepin Hcl (Doxepin Hcl), 100 MG PO QHS, (Reported) Total Time: Total Time: Total time spent was 34 minutes in preparing scripts, discharge planning with SW and RN, and preparing this discharge summary. Patient seen and examined on day of discharge. Justicifation of Admission Dx: Justifications for Admission: Justification of Admission Dx: Yes Respiratory Failure: Severe Resp Distress JOHN MALDONADO MD Feb 04, 2021 22:11
== END 2021-01-31 16:00 | disposition home or self-care (01) | DRG 871 ==
LOC: ER 11:34 → 2 SOUTH 16:35
PROVIDERS: ADMIT Internal Medicine; ATTEND Internal Medicine
DX: A41.59 Other Gram-negative sepsis (principal); J96.01 Acute respiratory failure with hypoxia; G93.41 Metabolic encephalopathy; J18.9 Pneumonia, unspecified organism; E46 Unspecified protein-calorie malnutrition; F05 Delirium due to known physiological condition; N12 Tubulo-interstitial nephritis, not specified as acute or chronic; N30.00 Acute cystitis without hematuria; E87.6 Hypokalemia; F17.200 Nicotine dependence, unspecified, uncomplicated; F31.9 Bipolar disorder, unspecified; F41.9 Anxiety disorder, unspecified; J43.2 Centrilobular emphysema; K86.89 Other specified diseases of pancreas; M51.9 Unspecified thoracic, thoracolumbar and lumbosacral intervertebral disc disorder; N26.1 Atrophy of kidney (terminal); N28.89 Other specified disorders of kidney and ureter; Z20.822 Contact with and (suspected) exposure to COVID-19; Z90.49 Acquired absence of other specified parts of digestive tract; Z90.710 Acquired absence of both cervix and uterus; G89.29 Other chronic pain; I95.9 Hypotension, unspecified; Z88.0 Allergy status to penicillin; Z88.2 Allergy status to sulfonamides; Z68.23 Body mass index [BMI] 23.0-23.9, adult
CPT/HCPCS: 36415; 36600; 70450; 71045; 71275; 74176; 78580; 80048; 80053; 80307; 81001; 82805; 82962; 83605; 83690; 83880; 84484; 85007; 85025; 85027; 85379; 87040; 87426; 87449; 93970; 94618; 94640; 94667; 94668; 94760; 96361; 96374; A9540; J0456; J0696; J1650; J3480; J7030; J7050; Q9966; Q9967; U0003; U0005; 97535-GO; 99285-25; G0378; J7613; J7626